=== PATIENT | female | born 1965 | race Caucasian/White ===

== ENCOUNTER → 2017-08-15 09:17 | Outpatient (CLI) | payer BC, SELFPAY ==
--- NOTE | 2017-08-15 09:25 | US_ITS ---
US abdomen limited COMPARISON: None HISTORY: Elevated liver enzymes TECHNIQUE: Ultrasound right upper quadrant FINDINGS: The pancreas is normal. The liver is normal in size and shows increased and somewhat coarsened echogenicity consistent with diffuse fatty infiltration. There are no focal lesions. The gallbladder is normal in size with a small amount of sludge seen near the neck of the gallbladder but no gallstones are seen. The common bile duct is normal caliber. The portal vein appears normal. Right kidney measures 11.4 x 4.8 x 6.0 cm and appears normal with no hydronephrosis. IMPRESSION: Diffuse fatty liver and small amount biliary sludge as noted
== END ==
PROVIDERS: Family Provider Internal Medicine; PCP Internal Medicine; Visit Provider Internal Medicine
DX: E80.7 Disorder of bilirubin metabolism, unspecified (principal)
CPT/HCPCS: 76705

== ENCOUNTER → 2018-02-27 08:03 | Outpatient (CLI) | payer BC, SELFPAY ==
--- NOTE | 2018-02-27 08:07 | XR_ITS ---
XR knee LT 3V HISTORY: ITS.REASON: STEPPED IN A HOLE, KNEE PAIN X 1 WEEK ORDERING PHYSICIAN: Mario Wei PATIENT AGE: 52 years COMPARISON: 02/20/2015 FINDINGS: No fracture or dislocation. No lytic or blastic change. Normal mineralization. There are mild osteoarthritic changes of the medial compartment and patellofemoral joint. IMPRESSION: Osteoarthritis, no acute finding, no change from 02/20/2015
== END ==
PROVIDERS: PCP Internal Medicine; Visit Provider Internal Medicine
DX: M25.562 Pain in left knee (principal)
CPT/HCPCS: 73562

== ENCOUNTER → 2018-12-18 12:58 | Outpatient (CLI) | payer BC, SELFPAY | PROVIDERS: PCP Internal Medicine; Visit Provider Internal Medicine | DX: G47.33 Obstructive sleep apnea (adult) (pediatric) (principal); R40.0 Somnolence; R06.83 Snoring; E66.9 Obesity, unspecified; R53.83 Other fatigue | CPT/HCPCS: G0399 ==

== ENCOUNTER → 2021-04-13 12:48 | Outpatient (CLI) | payer BC, SELFPAY ==
[2021-04-13 14:04] LABS: Hemoglobin A1C 6.6 % (4.0-6.0)
[2021-04-13 15:38] LABS: Alanine Aminotransferase 27 U/L (12-78); Albumin Level 4.2 g/dl (3.5-5.0); Albumin/Globulin Ratio 1.7 (1.1-1.8); Alkaline Phosphatase 98 U/L (38-126); Anion Gap 11.4 mEq/L (5-15); Aspartate Amino Transferase 30 U/L (14-36); Bilirubin,Total 0.6 mg/dl (0.2-1.3); Blood Urea Nitrogen 15 mg/dl (7-17); Calcium 9.5 mg/dl (8.4-10.2); Carbon Dioxide 32 mmol/L (22.0-30.0); Chloride 98 mmol/L (98-107); Chol/HDL Ratio 4.3 (1-3.5); Cholesterol 172 mg/dl (140-200); Estimated Glomerular Filt Rate 74 ml/min (>60); GFR (African American) 90 ML/MIN (>60); Globulin 2.5 g/dL (1.3-3.2); Glucose 118 mg/dl (74-100); HDL Cholesterol 40 mg/dl (40-60); Potassium 4.4 mmoL/L (3.5-5.1); Sodium 137 mmol/L (136-145); Total Protein,Serum 6.7 g/dl (6.3-8.2); Triglycerides 208 mg/dl (30-150); VLDL Cholesterol 42 mg/dL (0-40)
[2021-04-13 15:49] LABS: Direct LDL Cholesterol 88.39 mg/dL (100-129)
== END ==
PROVIDERS: Visit Provider Internal Medicine
DX: I10 Essential (primary) hypertension (principal); E11.9 Type 2 diabetes mellitus without complications; E78.5 Hyperlipidemia, unspecified; M10.9 Gout, unspecified; M17.0 Bilateral primary osteoarthritis of knee; Z79.84 Long term (current) use of oral hypoglycemic drugs
CPT/HCPCS: 80053; 80061; 82043; 83036; 84550

== ENCOUNTER → 2021-04-16 12:38 | Outpatient (CLI) | payer BC, SELFPAY | PROVIDERS: PCP Internal Medicine; Visit Provider Nurse Practitioner | DX: U07.1 COVID-19 (principal) | CPT/HCPCS: C9803; U0003; U0005 ==

== ENCOUNTER 2021-05-02 10:32 | Emergency (ER) | payer BC, SELFPAY ==
[2021-05-02 12:43] VITALS: BP 115/76; PULSE 73; RESP 18; TEMP 36.6; O2SAT 98; BMI 37.5
[2021-05-02 12:48] LABS: Apearance,Urine Turbid (Clear); Bilirubin,Urine Negative (Negative); Blood, Urine 3+ (Negative); Color,Urine Orange (Yellow); Glucose,Urine (UA) Negative (Negative); Ketones,Urine Negative (Negative); Protein,Urine 4+ (Negative); Specific Gravity, Urine 1.025 (1.005-1.030); UTC Leukocyte Esterase,Urine Trace (Negative); UTC Nitrate,Urine Negative (Negative); Urobilinogen,Urine 0.2 EU/dl (0.2)
--- NOTE | 2021-05-02 13:25 | HMH.EDUTC ---
[facility] Disposition Clinical Impression: UTI (urinary tract infection) Qualifiers: Urinary tract infection type: site unspecified Hematuria presence: with hematuria Qualified Code(s): N39.0 - Urinary tract infection, site not specified; R31.9 - Hematuria, unspecified Disposition: Home, Self-Care Condition on Discharge: Good Instructions: DI for Urinary Tract Infection (UTI), Urinary Tract Infection Additional Instructions: Drink plenty of fluids. Take tylenol or ibuprofen for pain or fever. Take the medications as directed. Follow up with your regular doctor. GO TO THE ER FOR ANY WORSENING SYMPTOMS The urine will be cultured to determine which bacteria is causing your infection and which antibiotic will treat it best. Usually the first antibiotic treats it well, but follow up to go over the culture results in 3 days if you are not getting better. You could also call your primary care physician to have them look it up and adjust your treatment accordingly. The pyridium will make your urine turn orange, this is an expected side effect. It will stain your clothes if it comes into contact with them. The zofran is for only if the mediations cause to have nausea. You may not need to get this from the pharmacy. The diflucan is for only if the antibiotics cause you to get a yeast infection. You may not need to get this from the pharmacy also. Prescriptions: Ondansetron [Zofran 4mg ODT] 4 mg PO Q8HP PRN #20 tab PRN Reason: Nausea Transmission Status: Pending to [facility] Sulfamethoxazole/Trimethoprim [Bactrim DS tablet] 1 each PO BID 7 Days #14 tab Transmission Status: Pending to [facility] Fluconazole [Diflucan 150mg tab] 150 mg PO ONCE #1 tab Transmission Status: Pending to [facility] Phenazopyridine HCl [Pyridium 200mg Tablet] 200 pow PO TID #6 tab Transmission Status: Pending to [facility] Referrals: Mario Wei [Primary Care Provider] - Time of Disposition: 13:41 Medical Decision Making - Medical Records Medical records reviewed: No: I reviewed the patient's medical records. - Jesus Inquiry Pt receiving controlled substance: No Vital Signs: 05/02/21 12:43 Temperature 97.9 F Temperature Source Temporal Artery Scan Pulse Rate [Left] 73 Respiratory Rate 18 Blood Pressure [Right Arm] 115/76 Blood Pressure Mean [Right Arm] 89 02 Sat by Pulse Oximetry 98 - Lab Data Lab results reviewed: Yes: I reviewed the patient's lab results. Lab Results 05/02/21 11:56: Urine Color Maynard, Urine Appearance Turbid, Urine pH 6.0, Ur Specific [place] 1.025, Urine Protein 4+, Urine Glucose (UA) Negative, Urine Ketones Negative, Urine Blood 3+, Urine Nitrate Negative, Urine Bilirubin Negative, Urine Urobilinogen 0.2, Ur Leukocyte Esterase Trace Orders (Tests/Meds): ORDERS Category Date Time Status Urine Culture Stat Micro 05/02/21 11:56 Ordered [facility] HPI - General Stated complaint: cough,congestion,burning and constant Time Seen by Provider: 05/02/21 13:25 Mode of Arrival: Ambulatory Source of Information: Patient Limitations: No Limitations Description of Symptoms (Recalled from Triage Doc. by RN): pt c/o blood in her urine, burning with urination and urinary frequency x1 week. pt states the pain is worse this am. HEENT Symptoms (Recalled from RN notes): No Resp Symptoms (Recalled from RN notes): No Skin Symptoms (Recalled from RN notes): No MS Symptoms (Recalled from RN notes): No Functional Status (Recalled from RN notes): wnl - History of Present Illness Provider Complaint: She c/o burning with urination 2 days ago. She tried to drink lots of water and get it better that way, but her symptoms worsened during last night. She is very uncomfortable now. She denies any fever or chills. She denies yeast infection symptoms. - Related Data Home Medications Medication Instructions Recorded Confirmed allopurinol 100 mg tablet PO
[2021-05-02 13:38] VITALS: BP 115/76; PULSE 73; RESP 18; TEMP 36.6
== END 2021-05-02 14:04 | disposition home or self-care (01) ==
PROVIDERS: Emergency Provider Nurse Practitioner Family; PCP Internal Medicine
DX: N30.01 Acute cystitis with hematuria (principal); I10 Essential (primary) hypertension
CPT/HCPCS: 81003; 87086; 87088; 87186; 99202; G0463

== ENCOUNTER → 2021-10-12 11:58 | Outpatient (CLI) | payer BC, SELFPAY ==
[2021-10-12 13:36] LABS: Basophils # 0.2 K/mm3 (0-0.2); Basophils % 1.5 % (0.1-2.0); Eosinophils # 0.2 K/mm3 (0.0-0.4); Eosinophils % 1.8 % (0.1-12.0); Hematocrit 41.2 % (37.0-47.0); Hemoglobin 13.6 g/dL (12.2-16.2); Lymphocytes # 4.9 K/mm3 (0.7-4.5); Lymphocytes % 39.2 % (10-50); Mean Corpuscular HGB Conc 32.9 g/dL (31.8-35.4); Mean Corpuscular Hemoglobin 28.4 pg (27.0-31.2); Mean Corpuscular Volume 86.4 fl (81-99); Mean Platelet Volume 8.8 fl (7.4-10.4); Monocytes # 0.6 K/mm3 (0.1-1.0); Monocytes % 4.5 % (1.7-9.3); Neutrophils # 6.6 K/mm3 (1.8-7.8); Platelet Count 332 K/mm3 (142-424); Red Blood Count 4.77 M/mm3 (4.20-5.40); Red Cell Distribution Width 14.9 % (11.5-17.5); White Blood Count 12.5 K/mm3 (4.8-10.8)
[2021-10-12 13:54] LABS: Alanine Aminotransferase 31 U/L (12-78); Albumin/Globulin Ratio 1.5 (1.1-1.8); Alkaline Phosphatase 107 U/L (38-126); Anion Gap 13.4 mEq/L (5-15); Aspartate Amino Transferase 29 U/L (14-36); Bilirubin,Total 0.3 mg/dl (0.2-1.3); Blood Urea Nitrogen 17 mg/dl (7-17); Calcium 9.7 mg/dl (8.4-10.2); Carbon Dioxide 30 mmol/L (22.0-30.0); Chloride 98 mmol/L (98-107); Chol/HDL Ratio 4.4 (1-3.5); Cholesterol 173 mg/dl (140-200); Estimated Glomerular Filt Rate 74 ml/min (>60); GFR (African American) 89 ML/MIN (>60); Globulin 2.7 g/dL (1.3-3.2); Glucose 157 mg/dl (74-100); HDL Cholesterol 39 mg/dl (40-60); Potassium 4.4 mmoL/L (3.5-5.1); Sodium 137 mmol/L (136-145); Total Protein,Serum 6.7 g/dl (6.3-8.2); Triglycerides 262 mg/dl (30-150); Uric Acid 8.3 mg/dl (2.5-6.2); VLDL Cholesterol 52 mg/dL (0-40)
[2021-10-12 14:05] LABS: Direct LDL Cholesterol 84.63 mg/dL (100-129)
== END ==
PROVIDERS: PCP Internal Medicine; Visit Provider Internal Medicine
DX: E11.9 Type 2 diabetes mellitus without complications (principal); E78.5 Hyperlipidemia, unspecified; I10 Essential (primary) hypertension; M10.9 Gout, unspecified; M17.0 Bilateral primary osteoarthritis of knee; Z79.84 Long term (current) use of oral hypoglycemic drugs
CPT/HCPCS: 80053; 80061; 83036; 84550; 85025

== ENCOUNTER → 2022-04-13 12:42 | Outpatient (CLI) | payer BC, SELFPAY ==
[2022-04-13 14:57] LABS: Hemoglobin A1C 6.7 % (4.0-6.0)
[2022-04-13 16:09] LABS: Alanine Aminotransferase 23 U/L (12-78); Albumin Level 4.3 g/dl (3.5-5.0); Albumin/Globulin Ratio 1.7 (1.1-1.8); Alkaline Phosphatase 124 U/L (38-126); Aspartate Amino Transferase 23 U/L (14-36); Bilirubin,Total 0.4 mg/dl (0.2-1.3); Blood Urea Nitrogen 17 mg/dl (7-17); Calcium 9.7 mg/dl (8.4-10.2); Carbon Dioxide 32 mmol/L (22.0-30.0); Chloride 98 mmol/L (98-107); Chol/HDL Ratio 4.1 (1-3.5); Cholesterol 158 mg/dl (140-200); Estimated Glomerular Filt Rate 65 ml/min (>60); GFR (African American) 78 ML/MIN (>60); Globulin 2.5 g/dL (1.3-3.2); Glucose 109 mg/dl (74-100); HDL Cholesterol 39 mg/dl (40-60); Sodium 138 mmol/L (136-145); Total Protein,Serum 6.8 g/dl (6.3-8.2); Triglycerides 154 mg/dl (30-150); Uric Acid 8.4 mg/dl (2.5-6.2); VLDL Cholesterol 31 mg/dL (0-40)
[2022-04-13 16:10] LABS: Creatinine,Urine Random 198 mg/dL (Not Estab.)
[2022-04-13 16:20] LABS: Direct LDL Cholesterol 82.22 mg/dL (100-129)
[2022-04-13 17:27] LABS: Anion Gap 11.9 mEq/L (5-15); Potassium 3.9 mmoL/L (3.5-5.1)
[2022-04-13 19:04] LABS: Microalbumin/Creatinine Ratio 5.9
== END ==
PROVIDERS: PCP Internal Medicine; Visit Provider Internal Medicine
DX: E11.9 Type 2 diabetes mellitus without complications (principal); I10 Essential (primary) hypertension; E78.5 Hyperlipidemia, unspecified; M10.9 Gout, unspecified; Z79.84 Long term (current) use of oral hypoglycemic drugs
CPT/HCPCS: 80053; 80061; 82043; 82570; 83036; 84550

== ENCOUNTER → 2022-06-15 10:39 | Outpatient (CLI) | payer BC, SELFPAY ==
--- NOTE | 2022-06-15 10:44 | XR_ITS ---
FINAL REPORT CLINICAL HISTORY: knee pain COMPARISON: None FINDINGS: Three views of the right knee reveal no evidence of fracture or dislocation. The bony alignment is normal. There are dhrn-ht-dighinvt degenerative changes. There is no evidence of joint effusion. No localized soft tissue abnormality is identified. IMPRESSION: Degenerative changes with no acute abnormality identified. Reviewed, Interpreted and Dictated by Ag Cannon III, MD Transcribed by Latasha Liu Authenticated and [facility]
--- NOTE | 2022-06-15 10:44 | XR_ITS ---
FINAL REPORT CLINICAL HISTORY: knee pain COMPARISON: 02/27/2018 FINDINGS: Three views of the left knee reveal no evidence of fracture or dislocation. The bony alignment is normal. There are mild and moderate degenerative changes. There is no evidence of joint effusion. No localized soft tissue abnormality is seen. IMPRESSION: Degenerative changes with no acute abnormality identified. Reviewed, Interpreted and Dictated by Ag Cannon III, MD Transcribed by Latasha Liu Authenticated and [facility]
== END ==
PROVIDERS: PCP Internal Medicine; Visit Provider Orthopaedic Surgery
DX: M25.561 Pain in right knee (principal); M25.562 Pain in left knee
CPT/HCPCS: 73562

== ENCOUNTER 2022-10-04 13:00 | Outpatient (RCR) | payer BC, SELFPAY ==
--- NOTE | 2022-08-25 16:01 | HMH.PTOPEV ---
PT Outpatient Evaluation Rehab PT Outpatient Evaluation Start: 08/25/22 14:01 Freq: Status: Active Protocol: Document 08/25/22 14:01 [email or web address] (Rec: 08/25/22 16:01 TAINA [id number]) E-signed By Yoanna Foley, PT Outpatient Therapy Subjective History Subjective History Pt is a 57 y/o female with main complaint of insidious onset of central low back ~6 months ago. Pt denies radicular symptoms or paresthesia. Pt reports LBP is aggravated by standing or walking for ~5'. Pt reports immediate LBP relief with sitting and resting. Pt also reports history of chronic B knee pain R>L but states they haven't been bothering her lately. Pt denies having imaging of her back. Pt had bilateral knee radiographs performed at [facility] on 06/15/22 with report of Degenerative changes with no acute abnormality identified. Pt also had an injection in her right knee on 06/15/22 which caused left hip pain. Pt reports constant aching of the left lateral hip at night since the injection. Medical History: high blood pressure, high cholesterol, pre-diabetic Gait: genu varus deformity noted bilaterally Chief Complaint Pain Symptom Type Ache,Dull Symptoms Relieved By Rest/Positioning Symptoms Aggravated By Standing,Walking Prior Functional Limitations None Current Functional Limitations Sleeping,Standing,Walking, Stairs Symptom Description Intermittent Level of pain today (0-10) 0 Pain scale - at its best (0-10) 0 Pain scale - at its worst (0-10) 10 Lumbopelvic Eval Posture Lumbar Spine Posture Standing Position Flattened Assistive device Assistive Devices None / NA Gait Observation General Gait Pattern Observation Antalgic Gait,Wide Based Gait Palapation tenderness left buttock tenderness Yes: greater trochanter and piriformis Lumbar/Sacral Palpation Findings Tenderness
--- NOTE | 2022-09-22 15:07 | HMH.RHREAS ---
Rehab Reassessment Rehab OP Re-assessment Start: 09/22/22 14:10 Freq: Status: Active Protocol: Document 09/22/22 14:10 TAINA (Rec: 09/22/22 15:07 TAINA [id number]) E-signed By Yoanna Foley PT Rehab Re-assessment Subjective Subjective Pt reports she feels close to 100% improved in regards of how she expected to improve since starting PT. Pt reports she is able to walk further without having to rest due to pain (~3 minutes). Pt reports low back pain at worst as 5/ 10 and L>R knee pain 8/10 with walking. Pt reports she returns to her MD on 09/18/22. Pt reports she plans on getting her knee replaced in February. Objective Objective Notes Observation: varus deformity noted bilaterally with antalgic gait Lumbar AROM: flex 100, ext 12, 25 LF Knee AROM: -2 to 128 Knee MMT: 5/5 Hip MMT: 4+/5 STG: /5 LTG: / Assessment Progress Assessment Progressing as Expected Assessment Notes Pt has attended 8 PT visits. Pt's POC was originally planned for aquatic therapy; however, only 1 aquatic session was able to be performed due to maintence issues with the pool. Land exercises consisted of aerobic exercise, LE/core strengthening, and LE stretching. Pt demonstrated improved lumbar AROM and LE strength since initial evaluation. Patient goals met ST/5 LT/7 Goals Not Met walking/standing tolerance, pain at worst Revised Goals n/a Plan Plan Continue initial POC Frequency of Therapy 1-2x/week Duration of therapy 3-4 more weeks Time and Billing Re-Eval Time 10 Re-Eval Billing Units 1
== END 2022-10-04 13:05 | disposition home or self-care (01) ==
LOC: PT 13:00
PROVIDERS: PCP Internal Medicine; Visit Provider Orthopaedic Surgery
DX: M54.50 Low back pain, unspecified (principal); M17.0 Bilateral primary osteoarthritis of knee
CPT/HCPCS: 97010; 97014; 97033; 97110; 97113; 97163; 97164; 97530; G0283

== ENCOUNTER → 2022-10-21 13:14 | Outpatient (CLI) | payer BC, SELFPAY ==
[2022-10-21 16:20] LABS: Basophils # 0.1 K/mm3 (0-0.2); Basophils % 0.6 % (0.1-2.0); Eosinophils # 0.2 K/mm3 (0.0-0.4); Eosinophils % 1.3 % (0.1-12.0); Hematocrit 41.6 % (37.0-47.0); Hemoglobin 13.4 g/dL (12.2-16.2); Lymphocytes # 6.2 K/mm3 (0.7-4.5); Lymphocytes % 40.6 % (10-50); Mean Corpuscular HGB Conc 32.2 g/dL (31.8-35.4); Mean Corpuscular Hemoglobin 27.7 pg (27.0-31.2); Mean Corpuscular Volume 85.9 fl (81-99); Mean Platelet Volume 8.8 fl (7.4-10.4); Monocytes # 0.6 K/mm3 (0.1-1.0); Monocytes % 4.2 % (1.7-9.3); Neutrophils # 8.2 K/mm3 (1.8-7.8); Neutrophils % 53.3 % (37.0-80.0); Platelet Count 345 K/mm3 (142-424); Red Blood Count 4.84 M/mm3 (4.20-5.40); Red Cell Distribution Width 14.4 % (11.5-17.5); White Blood Count 15.3 K/mm3 (4.8-10.8)
[2022-10-21 16:26] LABS: MANUAL DIFFERENTIAL MANUAL DIFFERENTIAL (MANUAL DIFF)
[2022-10-21 16:48] LABS: Alanine Aminotransferase 26 U/L (12-78); Albumin/Globulin Ratio 1.5 (1.1-1.8); Alkaline Phosphatase 106 U/L (38-126); Anion Gap 17.7 mEq/L (5-15); Aspartate Amino Transferase 24 U/L (14-36); Bilirubin,Total 0.5 mg/dl (0.2-1.3); Blood Urea Nitrogen 15 mg/dl (7-17); Calcium 9.3 mg/dl (8.4-10.2); Carbon Dioxide 30 mmol/L (22.0-30.0); Chloride 99 mmol/L (98-107); Chol/HDL Ratio 3.6 (1-3.5); Cholesterol 149 mg/dl (140-200); Estimated Glomerular Filt Rate 86 ml/min (>60); GFR (African American) 104 ML/MIN (>60); Globulin 2.7 g/dL (1.3-3.2); Glucose 116 mg/dl (74-100); HDL Cholesterol 41 mg/dl (40-60); Potassium 4.7 mmoL/L (3.5-5.1); Sodium 142 mmol/L (136-145); Total Protein,Serum 6.7 g/dl (6.3-8.2); Triglycerides 172 mg/dl (30-150); Uric Acid 8.2 mg/dl (2.5-6.2); VLDL Cholesterol 34 mg/dL (0-40)
[2022-10-21 16:52] LABS: Hemoglobin A1C 6.5 % (4.0-6.0)
[2022-10-21 16:59] LABS: Direct LDL Cholesterol 76.61 mg/dL (100-129)
[2022-10-21 17:05] LABS: Hypochromasia 1+; Lymphocytes % 17 % (10-50); Monocytes % 5 % (2-9); Neutrophils % 78 % (42-76); Platelet Estimate Normal; Total Cells Counted 100
== END ==
PROVIDERS: PCP Internal Medicine; Visit Provider Internal Medicine
DX: E11.9 Type 2 diabetes mellitus without complications (principal); I10 Essential (primary) hypertension; E78.5 Hyperlipidemia, unspecified; M10.9 Gout, unspecified; M17.0 Bilateral primary osteoarthritis of knee; Z79.84 Long term (current) use of oral hypoglycemic drugs
CPT/HCPCS: 80053; 80061; 83036; 84550; 85007; 85025

== ENCOUNTER → 2023-04-24 12:56 | Outpatient (CLI) | payer BC, SELFPAY ==
[2023-04-24 14:00] LABS: Chloride 101 mmol/L (98-107); Sodium 139 mmol/L (136-145)
[2023-04-24 14:02] LABS: Blood Urea Nitrogen 15 mg/dl (7-17); Estimated Glomerular Filt Rate 74 ml/min (>60); GFR (African American) 89 ML/MIN (>60)
[2023-04-24 14:03] LABS: Alanine Aminotransferase 27 U/L (12-78); Albumin Level 4.3 g/dl (3.5-5.0); Albumin/Globulin Ratio 1.6 (1.1-1.8); Alkaline Phosphatase 99 U/L (38-126); Aspartate Amino Transferase 25 U/L (14-36); Bilirubin,Total 0.6 mg/dl (0.2-1.3); Calcium 9.2 mg/dl (8.4-10.2); Carbon Dioxide 30 mmol/L (22.0-30.0); Chol/HDL Ratio 4.4 (1-3.5); Cholesterol 163 mg/dl (140-200); Globulin 2.7 g/dL (1.3-3.2); Glucose 119 mg/dl (74-100); HDL Cholesterol 37 mg/dl (40-60); Triglycerides 199 mg/dl (30-150); VLDL Cholesterol 40 mg/dL (0-40)
[2023-04-24 14:14] LABS: Direct LDL Cholesterol 87.88 mg/dL (100-129)
[2023-04-24 15:39] LABS: Uric Acid 8.6 mg/dl (2.5-6.2)
[2023-04-24 16:10] LABS: Creatinine,Urine Random 157 mg/dL (Not Estab.)
[2023-04-24 16:15] LABS: Microalbumin < 6.000 mg/L (0-16.7)
[2023-04-24 16:20] LABS: Hemoglobin A1C 6.7 % (4.0-6.0)
== END ==
PROVIDERS: PCP Internal Medicine; Visit Provider Internal Medicine
DX: E11.9 Type 2 diabetes mellitus without complications (principal); I10 Essential (primary) hypertension; E78.5 Hyperlipidemia, unspecified; M17.0 Bilateral primary osteoarthritis of knee; M10.9 Gout, unspecified; Z79.84 Long term (current) use of oral hypoglycemic drugs
CPT/HCPCS: 80053; 80061; 82043; 82570; 83036; 84550

== ENCOUNTER 2023-06-02 10:20 | Outpatient (CLI) | payer BC, SELFPAY ==
--- NOTE | 2023-06-02 10:30 | XR_ITS ---
FINAL REPORT CLINICAL HISTORY: right knee pain COMPARISON: 06/15/2022 FINDINGS: Three views of the right knee reveal no evidence of fracture or dislocation. The bony alignment is normal. There is moderate and severe degenerative change. There is severe medial compartment narrowing. There is no evidence of joint effusion. No localized soft tissue abnormality is identified. IMPRESSION: Moderate and severe degenerative change without acute abnormality identified. Reviewed, Interpreted and Dictated by Ag Cannon III, MD Transcribed by Latasha Liu Authenticated and [facility]
== END 2023-06-02 23:59 ==
LOC: RAD 10:21
PROVIDERS: PCP Internal Medicine; Visit Provider Orthopaedic Surgery
DX: M25.561 Pain in right knee (principal)
CPT/HCPCS: 73562

== ENCOUNTER 2023-07-07 11:52 | Outpatient (CLI) | payer BC, SELFPAY ==
--- NOTE | 2023-07-07 12:03 | XR_ITS ---
FINAL REPORT CLINICAL HISTORY: Pre Op, 2 weeks right knee sx denies any heart/lung condition FINDINGS: 2 views of the chest were obtained . The heart is normal in size. The mediastinum is within normal limits. The lungs are clear. There is no pneumothorax. Osseous structures are unremarkable. IMPRESSION: No acute cardiopulmonary process. Reviewed, Interpreted and Dictated by Navid Preciado MD Transcribed by Tamar Crook Authenticated and [facility]
--- NOTE | 2023-07-07 12:15 | ECG_ITS ---
APPROVED REPORT Exam: Resting ECG HR:77 bpm ECG Measurements Heart Rate 77 AXES VT 162 P 68 QRSd 93 QRS 75 QT 382 T 17 QTc 414 Conclusion SINUS RHYTHM LOW QRS VOLTAGE IN PRECORDIAL LEADS [QRS DEFLECTION < 1.0 mV IN CHEST LEADS] BORDERLINE ECG UNCONFIRMED REPORT Electronically signed by : Chino Acosta MD 07/08/2023 12:37:13
[2023-07-07 12:35] LABS: Basophils # 0.1 K/mm3 (0-0.2); Basophils % 0.6 % (0.1-2.0); Eosinophils # 0.4 K/mm3 (0.0-0.4); Eosinophils % 2.5 % (0.1-12.0); Hematocrit 42.6 % (37.0-47.0); Hemoglobin 13.9 g/dL (12.2-16.2); Lymphocytes # 7.8 K/mm3 (0.7-4.5); Lymphocytes % 45.2 % (10-50); Mean Corpuscular HGB Conc 32.5 g/dL (31.8-35.4); Mean Corpuscular Hemoglobin 28.8 pg (27.0-31.2); Mean Corpuscular Volume 88.6 fl (81-99); Mean Platelet Volume 7.7 fl (7.4-10.4); Monocytes # 0.6 K/mm3 (0.1-1.0); Monocytes % 3.6 % (1.7-9.3); Neutrophils # 8.4 K/mm3 (1.8-7.8); Neutrophils % 48.2 % (37.0-80.0); Platelet Count 318 K/mm3 (142-424); Red Blood Count 4.81 M/mm3 (4.20-5.40); Red Cell Distribution Width 14.7 % (11.5-17.5); White Blood Count 17.3 K/mm3 (4.8-10.8)
[2023-07-07 12:37] LABS: MANUAL DIFFERENTIAL MANUAL DIFFERENTIAL (MANUAL DIFF)
[2023-07-07 12:50] LABS: Lymphocytes % 46 % (10-50); Monocytes % 3 % (2-9); Neutrophils % 51 % (42-76); Platelet Estimate Normal; RBC Morphology Normal; Total Cells Counted 100
[2023-07-07 12:57] LABS: Hemoglobin A1C 6.4 % (4.0-6.0)
[2023-07-07 13:02] LABS: Chloride 101 mmol/L (98-107)
[2023-07-07 13:03] LABS: Potassium 4.4 mmoL/L (3.5-5.1); Sodium 137 mmol/L (136-145)
[2023-07-07 13:05] LABS: Alanine Aminotransferase 27 U/L (12-78); Anion Gap 9.4 mEq/L (5-15); Aspartate Amino Transferase 25 U/L (14-36); Blood Urea Nitrogen 14 mg/dl (7-17); Carbon Dioxide 31 mmol/L (22.0-30.0); Estimated Glomerular Filt Rate 64 ml/min (>60); GFR (African American) 78 ML/MIN (>60)
[2023-07-07 13:06] LABS: Albumin Level 4.3 g/dl (3.5-5.0); Albumin/Globulin Ratio 1.7 (1.1-1.8); Alkaline Phosphatase 101 U/L (38-126); Bilirubin,Total 0.6 mg/dl (0.2-1.3); Globulin 2.6 g/dL (1.3-3.2); Glucose 93 mg/dl (74-100); Total Protein,Serum 6.9 g/dl (6.3-8.2)
== END 2023-07-07 23:59 ==
LOC: LAB 11:56
PROVIDERS: PCP Internal Medicine; Visit Provider Orthopaedic Surgery
DX: Z01.818 Encounter for other preprocedural examination (principal); M17.0 Bilateral primary osteoarthritis of knee
CPT/HCPCS: 36415; 71046; 80053; 83036; 85007; 85025; 93005

== ENCOUNTER 2023-07-11 12:47 | Outpatient (CLI) | payer BC, SELFPAY ==
[2023-07-11 13:13] LABS: Basophils # 0.1 K/mm3 (0-0.2); Basophils % 0.6 % (0.1-2.0); Eosinophils # 0.3 K/mm3 (0.0-0.4); Eosinophils % 2.1 % (0.1-12.0); Hematocrit 41.1 % (37.0-47.0); Hemoglobin 13.3 g/dL (12.2-16.2); Mean Corpuscular HGB Conc 32.5 g/dL (31.8-35.4); Mean Corpuscular Hemoglobin 28.8 pg (27.0-31.2); Mean Corpuscular Volume 88.5 fl (81-99); Mean Platelet Volume 8.1 fl (7.4-10.4); Monocytes # 0.6 K/mm3 (0.1-1.0); Neutrophils # 7.5 K/mm3 (1.8-7.8); Neutrophils % 48.4 % (37.0-80.0); Platelet Count 329 K/mm3 (142-424); Red Blood Count 4.64 M/mm3 (4.20-5.40); Red Cell Distribution Width 14.7 % (11.5-17.5); White Blood Count 15.5 K/mm3 (4.8-10.8)
[2023-07-11 13:20] LABS: MANUAL DIFFERENTIAL MANUAL DIFFERENTIAL (MANUAL DIFF)
[2023-07-11 14:04] LABS: Eosinophils % 1 % (0-3); Lymphocytes % 40 % (10-50); Monocytes % 6 % (2-9); Neutrophils % 53 % (42-76); Total Cells Counted 100
[2023-07-11 14:05] LABS: Platelet Estimate Normal; RBC Morphology Normal
[2023-07-11 14:07] LABS: Erythrocyte Sedimentation Rate 14 mm/hr (0-30)
== END 2023-07-11 23:59 ==
LOC: LAB.DROPOF 12:47
PROVIDERS: PCP Internal Medicine; Visit Provider Internal Medicine
DX: Z01.818 Encounter for other preprocedural examination (principal); E11.9 Type 2 diabetes mellitus without complications; D72.829 Elevated white blood cell count, unspecified; I10 Essential (primary) hypertension; E78.5 Hyperlipidemia, unspecified; E04.9 Nontoxic goiter, unspecified; M10.9 Gout, unspecified; M17.0 Bilateral primary osteoarthritis of knee; Z79.84 Long term (current) use of oral hypoglycemic drugs
CPT/HCPCS: 85007; 85025; 85651

== ENCOUNTER 2023-07-25 09:42 | Observation (INO) | payer BC, SELFPAY ==
[2023-07-21 12:18] VITALS: BMI 35.6
[2023-07-25] VITALS (18 sets, daily range): BP systolic 93–128; BP diastolic 50–74; PULSE 59–100; RESP 16–20; TEMP 36.1–36.7; O2SAT 93–100; BMI 36.5
[2023-07-25] MEDS: LACTATED RINGERS 1000ML 1,000 ML 25 ML IV (09:15)
--- NOTE | 2023-07-25 09:41 | SUR.PREOP ---
CLARIFIED WITH DR MEADE PT IS TO RECEIVE ANCEF DESPITE PCN ALLERGY.
--- NOTE | 2023-07-25 09:48 | EXP.ANES.CKL ---
[facility] Disclaimer: The information contained in this section may have been updated after the patient was seen, as this information can be updated by other users. Medical History (Updated 07/25/23 @ 09:06 by Latasha Paulson RN) Pre-diabetes Hypertension Surgical History (Updated 07/21/23 @ 12:19 by Latasha Paulson RN) History of section Family History Other No significant family history Social History (Updated 07/21/23 @ 12:19 by Latasha Paulson RN) Smoking Status: Never smoker alcohol intake: never substance use type: denies use current occupational status: unemployed Travel in the last 8 weeks: None household members: family housing: house [facility] Anesthesia Checklist Patient Identification Patient Identification: Arm Band Structural Data Admitted From: Home Planned Operative Procedure/s: Right Total Knee Arthroplasty Consent for Planned Operative Procedure(s) Verified: Yes Verified Documents: Surgical Consent and History and Physical NPO Status Verified Time NPO: 00:00 Additional verifications Anesthesia Reactions: No Hx Blood Transfusions: No Airway Assessment Mallampati Score:: Class II C-Spine Mobility Assessed: Yes TMJ Mobility Assessed: Yes Dentition: Good Dentition Neurological Assessment Level of Consciousness: Awake and Alert Anesthesia Plan Anesthesia Risk discussed: Yes Anesthesia Plan: Verified ASA Class: III Anesthesia Type: MAC w/Spinal (With Right Adductor Canal Nerve Block)
[2023-07-25] MEDS: MORPHINE PF 10 MG/10ML AMP (10:53)
[2023-07-25] MEDS: ROPIVACAINE 0.5% 30ML VIAL 150 MG (10:53)
[2023-07-25] MEDS: CEFAZOLIN SODIUM 2 GM in 0.9 % SODIUM CHLORIDE 100 ML IV ×3 (10:54→23:09)
[2023-07-25] MEDS: TRANEXAMIC ACID 1,000 MG in 0.9 % SODIUM CHLORIDE 250 ML 500 MG IV (10:54)
[2023-07-25] MEDS: SODIUM CHLORIDE IRRIG SOLUTION 3,000 ML 3000 ML IR (10:54)
--- NOTE | 2023-07-25 12:00 | EXP.OP.NOTE ---
Date of procedure: 07/25/23 Pre-op Diagnosis:: Right knee osteoarthritis Post-op Diagnosis:: Right knee osteoarthritis Procedure performed:: Right total knee replacement Surgeon:: Kike Rebolledo MD Garageman(s):: None ICE PLATFORM SUPERVISOR:: Other Anesthesia: regional, local and spinal Estimated blood loss (mL): 5 Clinical Note:: Kendal is a very pleasant 57-year-old female with activity limiting bilateral knee pain secondary to osteoarthritis that is affecting her quality of life. Right knee is worse. Bilateral knee x-rays at [place] 06/15/2022 revealed moderate tricompartmental degenerative changes in both knees slightly worse on the right. There is almost complete loss of medial joint space with marginal osteophyte formation in varus knees. A right knee cortisone injection in June 2022 did not help much and she feels like it aggravated her low back and left hip. She does not want any more injections. She has done physical therapy at [facility] focusing on core strengthening and a low back program. Also has completed some aquatic therapy. We have provided her with a low-impact home exercise program. At this point she is a reasonable candidate for right total knee replacement. I discussed all the risks, benefits and alternatives to right knee replacement and she agrees to proceed. Surgical consent form was signed. Operative findings:: Right knee severe tricompartmental degenerative changes with varus deformity. Operative note:: The patient was seen in the preoperative holding area. The right knee was marked to confirm the correct operative site. She was seen by anesthesia. She received Ancef 2 g IV prophylactic antibiotics within 1 hour of incision time. She also received a gram of IV TXA just prior to the incision and as were closing to help minimize bleeding. She was brought back to the OR. Spinal anesthesia performed without difficulty and IV sedation given throughout the case. A nonsterile tourniquet was applied to the right thigh. The right lower extremity was prepped and draped in the usual sterile fashion. Timeout performed to confirm right total knee arthroplasty for patient Kendal Lee. The right lower extremity was examined with an Esmarch and tourniquet was inflated to 300 mmHg. With the knee flexed I made a midline incision with a 10 blade scalpel. Full-thickness medial and lateral flaps were elevated. Adequate hemostasis maintained with Bovie electrocautery. A fresh 10 blade scalpel was used to make a medial parapatellar arthrotomy. The patella was everted. Anterior femoral fat pads and infrapatellar fat pads were excised with the Bovie. A medial release was performed with the Bovie and marginal osteophytes were removed. Medial and lateral Z retractors were placed. The distal femur was then drilled and the intramedullary distal femoral cutting guide was pinned in place set at a 5 degree valgus cut. This cut was then made with oscillating saw removing approximately centimeter of bone from the distal femur. The distal femur was then sized to a size 6 set at 3 degrees of external rotation. The 4-in-1 cutting was pinned in place and the anterior and posterior cuts were made as well as as the chamfer cuts with the oscillating saw. We then turned our attention to the tibia. A PCL retractor and medial and lateral Hohmann retractors were placed. Using the extramedullary tibial cutting guide with a 3 degree posterior slope we excised about 5 mm of bone from the low medial side and about a centimeter from the high lateral side using the oscillating saw. We then excised the medial and lateral menisci and posterior osteophytes. We checked balancing with a 9 mm block and there was full extension with excellent alignment. We then finished preparation of the tibia with a size 4 tibial tray centered off the medial third of the tibial tubercle. Fins were impacted and tray was pinned in place for trialing. We then placed the size 6 femur and made the box cut with the reamer and punch. Decided to use a 6 narrow for the final implant. We placed a 9 mm trial poly. With these trial components in place there was full extension and flexion with excellent alignment and stable throughout. We then made a patellar cut. Patella sized to 24 mm in thickness so we made a 9 mm patellar cut. Sized to a 32 mm button. Drill holes were made and with the trial button in place there was excellent tracking. Trial components removed and final components opened on the back table. The knee was copiously irrigated with Pulsavac lavage and thoroughly dried. A bone plug was placed in the distal femoral drill hole. The posterior capsule was injected with 20 cc of half percent Naropin and 5 mg of morphine for local anesthetic. Cement was then mixed on the back table. We applied cement to the cut tibial and femoral surfaces and impacted the size 4 tibia and [address] Excess cement was removed. We then placed a 9 mm poly and it was seen to be fully engaged in the tibial tray. The knee was placed in extension while the cement cured. We also applied cement to the cut patellar surface and held the 32 mm patellar button in place with the patellar clamp. Once the cement was fully cured we irrigated the knee with a dilute Betadine solution and Pulsavac lavage. We then proceeded with closure. The deep fascia was closed with a #1 strata fix barbed suture, the dermis was closed with interrupted 2-0 Vicryl sutures and the skin was closed with a 3-0 stratafix subcuticular barbed suture. We then applied a sterile dressing with Prineo mesh dressing with Dermabond glue, 4 x 4's, ABD, soft roll and Frankie bandage. Tourniquet was deflated at 76 minutes. All sponge and needle counts were correct. Postoperative plan: The patient will be admitted to the hospitalist service for medical management. Discussed with Dr. Fong. Mobilize as tolerated with PT and OT. Remove soft dressing postop day #1, okay to shower with mesh dressing in place. optical engineering manager for home equipment needs and schedule outpatient physical therapy at [facility] to start later this week. Plan discharge home tomorrow if doing well. Follow-up in the office in 3 weeks on 08/15. Tourniquet time (min): 76 Condition: stable Disposition: PACU Specimens:: Implants used: [employer] posterior stabilized total knee arthroplasty with a size 6 narrow femur, 4 tibia, 9 polyethylene and 32 patella Complications:: None
--- NOTE | 2023-07-25 12:10 | XR_ITS ---
FINAL REPORT CLINICAL HISTORY: Status post right knee replacement..pain COMPARISON: 06/02/2023 FINDINGS: Two views of the right knee were obtained. Postoperative changes from right knee arthroplasty. Hardware appears intact. Soft tissue air is noted. There is no evidence of complication. IMPRESSION: Postoperative changes from right knee arthroplasty without evidence of complication. Reviewed, Interpreted and Dictated by Ag Cannon III, MD Transcribed by Latasha Liu Authenticated and . [facility]
--- NOTE | 2023-07-25 12:20 | P.PNANES_ITS ---
[facility] Anesthesia Record Part I Anesthesia Record I Intake, IV Amount: 1,100 Hydration: Adequate Estimated blood loss (mL): 25 Urine output (mL): 0 Blood Products used (#): none Blood Pressure: 101/50 SaO2: 93 Pulse Rate: 100 Airway Patency: Patent Respiratory Rate: 20 Temperature: 97.1 F Patient is:: Awake (Talking) and Stable Stable to PACU at:: 12:15
--- NOTE | 2023-07-25 14:10 | HMH.PTEV ---
Physical Therapy Evaluation Rehab PT IP Evaluation Start: 07/25/23 12:10 Freq: ONCE Status: Active Protocol: Document 07/25/23 13:53 AYAN (Rec: 07/25/23 14:00 AYAN [id number]) Subjective/History History History Pt presents s/p L TKA surgery. Subjective Subjective Pt reports she lives with her in a single-story home with 1 TRACY. Pt IND with functional mobility prior to surgery without AD use. New diagnosis of cancer in past 12 No months? Rehab PT IP Eval Objective Appearance Patient Behavior Appropriate,Cooperative Patient Orientation Person,Place Difficulty following instructions none Speech Pattern Clear Ambulation Patient Able to Ambulate No Balance Ability to Arise Able, uses arms to help Sitting Balance Steady, safe Standing Balance Unsteady Transfers Bed Transfer Ability Minimal x 1 (25% assist) Sit to Stand Bed Transfer Ability Moderate x 2 (50% assist) Rehab PT IP prob,goals,plan Problems Date of Evaluation: 07/25/23 PT IP Problems Bed Mobility,Transfers,Gait, Balance,Self care,Safety Rehab Potential Rehab Potential Good Equipment Needs Assistive Devices Rolling / Wheeled Walker Plan PT Intervention Plan Bed Mobility,Transfers,Gait, Balance,Safety,Therapeutic Exercise Other Intervention Plan 1-2 times PT Plan Frequency Daily Duration LOS Discharge Goals Bed Transfer Ability Supervision/Stand by Sit to Stand Chair Transfer Ability Minimal x 1 (25% assist) Ambulation Assistive Device Rolling Walker Ambulation Distance (feet) 10 Discharge Plan PT Discharge Plan Pt safe to d/c home when deemed medically necessary d/t PLOF, home set-up, and family support. Pt's able to assist with mobility and ADLs as needed. Pt unable to achieve full stand this date d /t residual block from surgery requiring Mod A to return sitting EOB safely. Pt would benefit from skilled PT while at [facility] to prevent further functional decline and maximize safety with mobility. PT recommending OP PT services to address deficits. Eval Complexity Eval Charge Codes 86923 - Moderate Complexity PHYSICIAN CERTIFICATION: I certify the specified therapy services for Kendalsantos Lee are required, authorized, and reviewed every 30 days.
--- NOTE | 2023-07-25 14:13 | SW/DCPLANNER ---
Addendum entered by Corazon Cope 07/25/23 15:42: Outpatient PT appointment is scheduled for Monday07/28/23 at 1:00PM: I have notified patient's nurse. Original Note: I spoke w/ this patient regarding plans once medically stable for discharge. PT/OT evaluated patient and stated that patient could return to outpatient PT services. Patient is agreeable to return to [facility] outpatient PT at time of discharge. Patient also stated that she will need a rolling walker at time of discharge and is agreeable to use [facility].
--- NOTE | 2023-07-25 15:56 | EXP.HP ---
History of Present Illness *Admission Date: 07/25/23 *Reason for visit:: R knee surgery *History of present illness: Patient is a 57-year-old female who presented to the hospital due to surgery after right knee replacement. At time of my evaluation patient denies chest pain shortness of breath nausea vomiting diarrhea constipation dysuria fevers and chills. Patient has past medical history of hypertension hyperlipidemia, prediabetes. [facility] Disclaimer: The information contained in this section may have been updated after the patient was seen, as this information can be updated by other users. Medical History (Updated 07/25/23 @ 15:57 by Rudolph Fong MD) Pre-diabetes Hypertension Surgical History History of section Family History (Updated 07/25/23 @ 15:57 by Rudolph Fogn MD) Other Hypertension No significant family history Social History Smoking Status: Never smoker alcohol intake: never substance use type: denies use current occupational status: unemployed Travel in the last 8 weeks: None household members: family housing: house Review of Systems Review of Systems Review of systems (narrative): as per [facility] Meds Home Medications and Allergies Home Medications Medication Instructions Recorded Confirmed Type aspirin 81 mg tablet,delayed 81 mg PO DAILY 11/12/18 07/25/23 History release (Adult Low Dose Aspirin) atorvastatin 20 mg tablet 20 mg PO HS #90 tabs 11/12/18 07/25/23 History metformin 500 mg tablet 500 mg PO BID 08/17/22 07/25/23 History lisinopril 20 2 tab PO DAILY 06/02/23 07/25/23 History mg-hydrochlorothiazide 12.5 mg tablet oxycodone 5 mg tablet 5 mg PO Q4H PRN pain #30 tabs 07/25/23 Rx New Prescriptions to Start Prescriptions: Allergies Allergy/AdvReac Type Severity Reaction Status Date / Time Penicillins Allergy Unknown Unknown Verified 07/25/23 12:49 allergy reaction Exam Data for Last 24 hours Vital signs and Labs for Last 24 Hours: Temp Pulse Resp BP Pulse Ox O2 Del Method 98.0 F 82 18 101/55 L 95 Room Air 07/25/23 12:43 07/25/23 12:43 07/25/23 12:43 07/25/23 12:43 07/25/23 12:43 07/25/23 13:00 I & O for Last 24 hours: Intake & Output 07/22/23 07/23/23 07/24/23 07/25/23 22:59 23:59 23:59 23:59 Intake Total 1100 / 1100 Output Total 0 / 0 Balance 1100 / 1100 Weight 108.862 kg Constitutional Constitutional: no acute distress *Routine HEENT Exam Head: Present normocephalic Eye: Present EOMI and PERRL ENT: Present mucous membranes moist *Routine Neck Exam Neck: Present supple; Absent lymphadenopathy *Routine Respiratory Exam Respiratory: Present CTA bilaterally *Routine Cardiovascular Exam Cardiovascular: Present RRR *Routine Abdominal Exam Abdominal: Present soft and normoactive bowel sounds; Absent tenderness *Routine Rectal Exam Rectal:: deferred *Routine Genitalia Exam Genitalia:: deferred *Routine Extremities Exam Extremities: Absent cyanosis, clubbing or edema Comments: R knee covered in dressing *Routine Skin Exam Skin: Present warm; Absent rash *Routine Neurological Exam Neurological: Present alert and oriented X3 Assessment and Plan *Assessment and plan (1) Leukocytosis: Status: Acute Category: Medical Code(s): D72.829 - Elevated white blood cell count, unspecified (2) Primary osteoarthritis of knees, bilateral: Status: Acute Category: Medical Code(s): M17.0 - Bilateral primary osteoarthritis of knee (3) Chronic pain of both knees: Status: Acute Category: Medical Code(s): M25.561 - Pain in right knee; M25.562 - Pain in left knee; G89.29 - Other chronic pain (4) Pre-diabetes: Status: Acute Category: Medical Code(s): R73.03 - Prediabetes (5) Hypertension: Status: Acute Category: Medical Code(s): I10 - Essential (primary) hypertension Plan Patient is a 57-year-old female who presented to the hospital due to surgery after right knee replacement. At time of my evaluation patient denies chest pain shortness of breath nausea vomiting diarrhea constipation dysuria fevers and chills. Patient has past medical history of hypertension hyperlipidemia, prediabetes. Assessment Right knee replacement Leukocytosis likely chronic, patient follows up with hematology as outpatient Hypertension Hyperlipidemia Prediabetes Plan Aspirin 325 for DVT prophylaxis Continue atorvastatin, lisinopril, metformin Consult PT/OT Monitor and replace electrolytes Check hemoglobin in a.m. DVT prophylaxis-heparin Diabetic diet Likely discharge
--- NOTE | 2023-07-25 16:25 | HMH.OTEV ---
OT Inpatient Evaluation Rehab OT IP Evaluation Start: 07/25/23 12:10 Freq: ONCE Status: Active Protocol: Document 07/25/23 16:08 BAILEYLEIGH ANN (Rec: 07/25/23 16:25 LAKESHIA [id number]) Rehab OT IP Assessment Subjective History Patient is a 57-year-old female who presented to the hospital due to surgery after right knee replacement. At time of my evaluation patient denies chest pain shortness of breath nausea vomiting diarrhea constipation dysuria fevers and chills. Patient has past medical history of hypertension hyperlipidemia, prediabetes. I can move around. Patient lives with in 1 story home with 1-2 TRACY. Independent with ADLs and fx'l mobility prior to surgery. Continues to work and drive independently. Subjective I can move. Instructed Patient on proper hand and foot placement to complete bed mobility from supine->sit @ EOB requiring SBA. Instructed Patient on sit ->stand with usage of RW. Patient stood with Mod A x2, however R knee unable to hold patient up at this time and was slowly transitioned back to EOB. Educated Patient to attempt to stand/ambulate the next morning. Objective Patient Orientation Person Right Upper Extremity Gross ROM WFL Left Upper Extremity Gross ROM WFL Bed Mobility bed mobility - supine/sit Assist Level Supervision/Stand by Transfer Training Sit/Stand Transfer Assist Level Moderate x 2 (50% assist) Chair Transfer Ability Moderate x 2 (50% assist) Rehab OT IP prob,goals,plan Problems Date of Evaluation: 07/25/23 OT IP Problems Bed Mobility,Transfers,Balance ,Self care,Safety Rehab Potential Rehab Potential Good Equipment Needs Assistive Devices Rolling / Wheeled Walker Plan OT intervention Plan Bed Mobility,Transfers,Balance ,Self care,Safety,Therapeutic Exercise OT Plan Frequency Daily Duration LOS Discharge Goals Bed Mobility Ability Assistance x1 Sit to Stand Chair Transfer Ability Independent Chair Transfer Ability Moderate x 1 (50% assist) Discharge Plan OT Discharge Plan Patient to continue to be seen here at [facility] for IP OT skilled services. REcommend OP services after medical d/c from hospital. Eval Complexity Eval Charge Codes 61116 - Low Complexity PHYSICIAN CERTIFICATION: I certify the specified therapy services for Kendal Lee are required, authorized, and reviewed every 30 days.
[2023-07-25] MEDS: OXYCODONE 5MG IMMEDIATE RELEASE TABLET 5 MG PO ×3 (17:23→23:52)
[2023-07-25] MEDS: HEPARIN SODIUM 5,000 UNIT/ML VIAL 5000 UNIT SQ (17:24)
[2023-07-25] MEDS: METFORMIN 500MG TABLET 500 MG PO (18:07)
--- NOTE | 2023-07-25 18:50 | PC.NURSE ---
patient moved over from unit- a/ox4, no distress noted while RN IN ROOM. REPORT FROM Briseyda Grimes RN [id number]. Call light within reach, scuds in place and k pad in place. at bedside.
[2023-07-25] MEDS: IBUPROFEN 600 MG TABLET PO (20:21)
[2023-07-25] MEDS: ATORVASTATIN 20MG TABLET 20 MG PO (20:57)
--- NOTE | 2023-07-25 23:09 | PC.NURSE ---
PT LAYING IN A LEFT TILT,PT TRYING TO GET COMFORTABLE.REPORTS PAIN IS ABOUT THE SAME.A 6-7.ASKED IF SHE WANTED TO TRY 2 OXYCODONES INSTEAD OF ONE AND SHE SAID YES,TOLD HER IT WAS A LITTLE TO SOON FOR 2 BUT IF SHE WANTED TO WAIT UNTIL HER ANCEF INFUSED WHICH WAS ABOUT 30 MINS,I COULD GIVE 2 AND SHE WAS ALRIGHT WITH THAT
--- NOTE | 2023-07-25 23:52 | PC.NURSE ---
PT REPORTS HER PAIN IS A 10 ON SCALE OF 0-10.10 MG OXYCODONE PO GIVEN.VERIFIED WITH CHRISTIE MA THAT 10 MG PO CAN BE GIVEN IF 5MG PO DOES NOT WORK.REPOSTIONED PT WITH PILLOWS FOR COMFORT.SHE HAS A WEDGE PILLOW THAT SHE CAN USE OFFERED TO PLACE IT AND SHE SAID SHE WOULD LATER IF SHE NEEDED IT.BED IN LOW POSTION,CALL LIGHT IN REACH
[2023-07-26] VITALS: BP 113/38; PULSE 80; RESP 17; TEMP 36.4; O2SAT 97
[2023-07-26] MEDS: HEPARIN SODIUM 5,000 UNIT/ML VIAL 5000 UNIT SQ ×2 (00:20→09:10)
[2023-07-26] MEDS: IBUPROFEN 600 MG TABLET PO (03:04)
[2023-07-26 04:00] VITALS: BP 112/30; PULSE 73; RESP 17; TEMP 36.3; O2SAT 96; BMI 39.3
[2023-07-26] MEDS: ACETAMINOPHEN 325MG TAB 650 MG PO ×2 (04:26→09:10)
[2023-07-26] MEDS: OXYCODONE 5MG IMMEDIATE RELEASE TABLET 5 MG PO (04:27)
--- NOTE | 2023-07-26 04:30 | PC.NURSE ---
NO ACUTE CHANGES FROM PREVIOUS ASSESSMENT,LUNGS CLEAR THROUGHTOUT,RESP.EVEN AND UNLABORED.RIGHT KNEE WITH DRESSING C.D.I.ICE POLOR PACK IN PLACED.NO DRAINAGE NOTED TO CARMEN WRAP.PT HAS RESTED SOME,SHE REPORTS SHE DOES NOT SLEEP BUT MAYBE A COUPLE HOURS .PT HAS BEEN MEDICATED WITH OXYCODONE,TYLENOL AND MOTRIN.AFEBRILE.ALERT AND ORIENTED X4.CALL LIGHT,TABLE IN REACH,BED IN LOW POSITION
[2023-07-26 05:00] VITALS: BP 92/41
--- NOTE | 2023-07-26 06:43 | EXP.DC.SUM ---
General Admission date:: 07/25/23 Discharge date: 07/26/23 HPI HPI HPI: Patient is a 57-year-old female who presented to the hospital due to surgery after right knee replacement. At time of my evaluation patient denies chest pain shortness of breath nausea vomiting diarrhea constipation dysuria fevers and chills. Patient has past medical history of hypertension hyperlipidemia, prediabetes. Hospital Course Hospital Course Hospital Course: Patient is a 57-year-old female who presented to the hospital due to surgery after right knee replacement. Admitted to medicine for monitoring overnight and evaluation by therapy. Did well overnight. Plan to discharge home with outpatient therapy. Pain stable. Problems addressed as follows: Assessment Right knee replacement due to primary osteoarthritis Leukocytosis likely chronic, patient follows up with hematology as outpatient Hypertension Hyperlipidemia Prediabetes Plan Taken for surgery on 07/24 without complication. Stable overnight. Feeling and sensation is returned to her right foot. Working with therapy. Stable to discharge home with oxycodone for pain control and to continue aspirin 325 for DVT prophylaxis for 2 weeks. Resume 81 mg aspirin thereafter. Plan to follow with outpatient therapy. Follow-up with orthopedics as scheduled. Continue home medications for chronic conditions. Patient overall doing well and stable for discharge. On room air and tolerating p.o. intake. Exam Data for Last 24 hours Vital signs and Labs for Last 24 Hours: Temp Pulse Resp BP Pulse Ox O2 Del Method 97.4 F L 73 17 92/41 L 96 Room Air 07/26/23 04:00 07/26/23 04:00 07/26/23 04:00 07/26/23 05:00 07/26/23 04:00 07/26/23 05:00 I & O for Last 24 hours: Intake & Output 07/23/23 07/24/23 07/25/23 07/26/23 23:59 23:59 23:59 23:59 Intake Total 1570 / 1570 Output Total 0 / 0 0 / 0 Balance 1570 / 1570 0 / 0 Weight 108.862 kg 117.662 kg Constitutional Constitutional: no acute distress, obese and cooperative *Routine HEENT Exam Head: Present normocephalic Eye: Present EOMI and PERRL ENT: Present mucous membranes moist *Routine Neck Exam Neck: Present supple; Absent lymphadenopathy *Routine Respiratory Exam Respiratory: Present CTA bilaterally; Absent rhonchi, wheezes or crackles *Routine Cardiovascular Exam Cardiovascular: Present RRR *Routine Abdominal Exam Abdominal: Present soft and normoactive bowel sounds; Absent tenderness *Routine Rectal Exam Patient deferred: visual exam *Routine Exam Patient deferred: external exam *Routine Extremities Exam Extremities: Absent cyanosis, clubbing or edema Comments: Right knee with surgical wound, clean dry and intact. Tender on thigh at previous site of tourniquet *Routine Skin Exam Skin: Present intact and warm; Absent rash *Routine Neurological Exam Neurological: Present alert, oriented X3 and moving all extremities; Absent altered mental status Comments: Neurovascularly intact distal to knee in right foot DS: Diagnosis Discharge Diagnosis (1) Primary osteoarthritis of knees, bilateral: Status: Acute Code(s): M17.0 - Bilateral primary osteoarthritis of knee (2) Leukocytosis: Status: Acute Code(s): D72.829 - Elevated white blood cell count, unspecified (3) Chronic pain of both knees: Status: Acute Code(s): M25.561 - Pain in right knee; M25.562 - Pain in left knee; G89.29 - Other chronic pain (4) Pre-diabetes: Status: Acute Code(s): R73.03 - Prediabetes (5) Hypertension: Status: Acute Code(s): I10 - Essential (primary) hypertension Meds Home Medications and Allergies Home Medications Medication Instructions Recorded Confirmed Type aspirin 81 mg tablet,delayed 81 mg PO DAILY 11/12/18 07/25/23 History release (Adult Low Dose Aspirin) atorvastatin 20 mg tablet 20 mg PO HS #90 tabs 11/12/18 07/25/23 History metformin 500 mg tablet 500 mg PO BID 08/17/22 07/25/23 History lisinopril 20 2 tab PO DAILY 06/02/23 07/25/23 History mg-hydrochlorothiazide 12.5 mg tablet acetaminophen 325 mg tablet 650 mg (2 x 325 mg) PO Q6HP PRN 07/26/23 Rx Mild To Moderate Pain (1-6) #0 tabs aspirin 325 mg tablet 325 mg PO DAILY 14 days #14 tabs 07/26/23 Rx docusate sodium 100 mg capsule 100 mg PO BIDP PRN Constipation 10 07/26/23 Rx days #10 caps oxycodone 5 mg tablet 5 mg PO Q4H PRN pain 3 days #18 07/26/23 Rx tabs New Prescriptions to Start Prescriptions: aspirin Fei Oconnor docusate sodium Elvin,Fei oxycodone Fei Oconnor Allergies Allergy/AdvReac Type Severity Reaction Status Date / Time Penicillins Allergy Unknown Unknown Verified 07/25/23 12:49 allergy reaction Discharge Plan Disposition Patient Disposition: Home, Self-Care Condition: Fair Follow up Plan Follow up with: Jairo Knott PT [Physical Therapist] - 07/28/23 1:00 pm Kike Rebolledo MD [Physician] - Enter time for follow up Prescriptions/Medication Reconciliation: New acetaminophen 325 mg Tablet 650 mg PO Q6HP PRN (Reason: Mild To Moderate Pain (1-6)) Qty: 0 0RF aspirin 325 mg Tablet 325 mg PO DAILY 14 Days Qty: 14 0RF docusate sodium 100 mg Capsule 100 mg PO BIDP PRN (Reason: Constipation) 10 Days Qty: 10 0RF Continued atorvastatin 20 mg tablet 20 mg PO HS Qty: 90 Patient Comments: TAKE 1 TABLET BY MOUTH AT BEDTIME FOR CHOLESTEROL metformin 500 mg tablet 500 mg PO BID Patient Comments: TAKE 1 TABLET BY MOUTH TWICE DAILY WITH MEALS FOR 90 DAYS lisinopril-hydrochlorothiazide 20-12.5 mg tablet 2 tab PO DAILY oxycodone 5 mg tablet 5 mg PO Q4H PRN (Reason: pain) 3 Days Qty: 18 0RF Held aspirin [Adult Low Dose Aspirin] 81 mg tablet,delayed release (DR/EC) 81 mg PO DAILY Hold Instructions: while taking higher dose of Aspirin Problem Reconciliation Problems Reviewed?: Yes Patient Discharge Instructions ACTIVITY: Continue current activity and Ambulate as tolerated DIET: continue same diet Providers Primary Care Provider: Mario Wei Admit Provider: Kike Rebolledo Attending Provider: Kike Rebolledo
[2023-07-26 06:48] LABS: Basophils # 0.1 K/mm3 (0-0.2); Basophils % 0.6 % (0.1-2.0); Eosinophils # 0.1 K/mm3 (0.0-0.4); Eosinophils % 0.3 % (0.1-12.0); Hemoglobin 11.6 g/dL (12.2-16.2); Lymphocytes # 3.6 K/mm3 (0.7-4.5); Lymphocytes % 24.5 % (10-50); Mean Corpuscular HGB Conc 33.1 g/dL (31.8-35.4); Mean Corpuscular Hemoglobin 29.3 pg (27.0-31.2); Mean Corpuscular Volume 88.7 fl (81-99); Mean Platelet Volume 8.4 fl (7.4-10.4); Monocytes % 6.9 % (1.7-9.3); Neutrophils # 9.9 K/mm3 (1.8-7.8); Neutrophils % 67.6 % (37.0-80.0); Platelet Count 260 K/mm3 (142-424); Red Blood Count 3.95 M/mm3 (4.20-5.40); Red Cell Distribution Width 14.9 % (11.5-17.5); White Blood Count 14.6 K/mm3 (4.8-10.8)
[2023-07-26 07:25] LABS: Anion Gap 7.6 mEq/L (5-15); Blood Urea Nitrogen 14 mg/dl (7-17); Calcium 8.5 mg/dl (8.4-10.2); Carbon Dioxide 28 mmol/L (22.0-30.0); Chloride 99 mmol/L (98-107); Creatinine Clearance Estimated 163 mL/min (50-200); Estimated Glomerular Filt Rate 86 ml/min (>60); GFR (African American) 104 ML/MIN (>60); Glucose 143 mg/dl (74-100); Potassium 3.6 mmoL/L (3.5-5.1); Sodium 131 mmol/L (136-145)
[2023-07-26 08:00] VITALS: BP 90/52; PULSE 74; RESP 20; TEMP 36.5; O2SAT 95
[2023-07-26] MEDS: KETOROLAC 30MG/ML VIAL 15 MG IV (09:09)
[2023-07-26] MEDS: ASPIRIN 325MG TABLET 325 MG PO (09:11)
[2023-07-26] MEDS: METFORMIN 500MG TABLET 500 MG PO (09:11)
[2023-07-26 12:31] LABS: POC Glucose,Bedside 143 (70-110)
[2023-07-26 14:07] VITALS: BP 106/54; PULSE 72; RESP 16; TEMP 36.6; O2SAT 95
--- NOTE | 2023-07-26 14:07 | EXP.ANES.II ---
[facility] Anesthesia Record Part II Anesthesia Record Part II Discharge Time: 12:30 Destination: Medical Surgical Department PACU nurse assessment reviewed?: Yes Patient Condition:: Good Anesthesia Complications:: None Swallowing reflex intact?: Yes Airway Patency: Patent Cyanosis?: No Blood Pressure: 106/54 SaO2: 95 Respiratory Rate: 16 Pulse Rate: 72 Temperature: 98 F Mental Status: Alert & Oriented Pain level:: 0 Nausea and/or vomitting:: None Intake, IV Amount: 0 Hydration: Adequate
--- NOTE | 2023-07-28 14:01 | CARE MANAGER ---
Attempted to contact patient x2 related to hospital discharge. Left VM messagel. FRANCESCA Jasmine
== END 2023-07-26 10:45 | disposition home or self-care (01) ==
LOC: ICU 09:42 → OB 18:37
PROVIDERS: Admitting Provider Orthopaedic Surgery; PCP Internal Medicine; Visit Provider Orthopaedic Surgery
PROC: (CPT 27447; principal; 2023-07-25 10:00)
DX: M17.11 Unilateral primary osteoarthritis, right knee (principal); M25.561 Pain in right knee; I10 Essential (primary) hypertension; Z79.899 Other long term (current) drug therapy; I25.10 Atherosclerotic heart disease of native coronary artery without angina pectoris
CPT/HCPCS: 27447; 36415; 73560; 80048; 82962; 85025; 96374; 97162; 97165; 97535; C1713; C1776; G0378; J0690; J2704

== ENCOUNTER 2023-08-10 07:22 | Outpatient (CLI) | payer BC, SELFPAY ==
[2023-08-10 07:50] LABS: Basophils # 0.2 K/mm3 (0-0.2); Basophils % 0.8 % (0.1-2.0); Eosinophils # 0.5 K/mm3 (0.0-0.4); Eosinophils % 2.1 % (0.1-12.0); Hematocrit 39.1 % (37.0-47.0); Hemoglobin 12.2 g/dL (12.2-16.2); Lymphocytes % 42.3 % (10-50); Mean Corpuscular HGB Conc 31.2 g/dL (31.8-35.4); Mean Corpuscular Hemoglobin 27.9 pg (27.0-31.2); Mean Corpuscular Volume 89.5 fl (81-99); Mean Platelet Volume 7.3 fl (7.4-10.4); Monocytes # 0.7 K/mm3 (0.1-1.0); Monocytes % 3.2 % (1.7-9.3); Neutrophils # 10.9 K/mm3 (1.8-7.8); Neutrophils % 51.6 % (37.0-80.0); Platelet Count 702 K/mm3 (142-424); Red Blood Count 4.37 M/mm3 (4.20-5.40); Red Cell Distribution Width 14.8 % (11.5-17.5); White Blood Count 21.1 K/mm3 (4.8-10.8)
[2023-08-10 07:54] LABS: MANUAL DIFFERENTIAL MANUAL DIFFERENTIAL (MANUAL DIFF)
[2023-08-10 08:21] LABS: Anion Gap 12.2 mEq/L (5-15); Blood Urea Nitrogen 20 mg/dl (7-17); Calcium 9.9 mg/dl (8.4-10.2); Carbon Dioxide 30 mmol/L (22.0-30.0); Chloride 97 mmol/L (98-107); Estimated Glomerular Filt Rate 74 ml/min (>60); GFR (African American) 89 ML/MIN (>60); Glucose 137 mg/dl (74-100); Potassium 4.2 mmoL/L (3.5-5.1); Sodium 135 mmol/L (136-145)
[2023-08-10 08:29] LABS: Eosinophils % 2 % (0-3); Lymphocytes % 36 % (10-50); Monocytes % 5 % (2-9); Neutrophils % 57 % (42-76); Total Cells Counted 100
[2023-08-10 08:30] LABS: Platelet Estimate Moderate Increase; RBC Morphology Normal
== END 2023-08-10 23:59 ==
LOC: LAB 07:23
PROVIDERS: PCP Internal Medicine; Visit Provider Internal Medicine
DX: I10 Essential (primary) hypertension (principal); D64.9 Anemia, unspecified
CPT/HCPCS: 36415; 80048; 85007; 85025

== ENCOUNTER 2023-08-16 10:26 | Outpatient (CLI) | payer BC, SELFPAY ==
--- NOTE | 2023-08-16 10:36 | XR_ITS ---
FINAL REPORT CLINICAL HISTORY: right tka x 3 wks COMPARISON: 07/25/2023 FINDINGS: Three views of the right knee were obtained. There is motion on the AP view. Prior knee arthroplasty is noted. No evidence of fracture or dislocation. The bony alignment is normal. The joint spaces are preserved. There is a large joint effusion. No localized soft tissue abnormality is identified. IMPRESSION: No acute abnormality identified. Large joint effusion. Reviewed, Interpreted and Dictated by Ag Cannon III, MD Transcribed by Latasha Liu Authenticated and [facility]
== END 2023-08-16 23:59 ==
LOC: RAD 10:26
PROVIDERS: PCP Internal Medicine; Visit Provider Orthopaedic Surgery
DX: M25.561 Pain in right knee (principal)
CPT/HCPCS: 73562

== ENCOUNTER 2023-09-25 16:00 | Outpatient (RCR) | payer BC, SELFPAY ==
--- NOTE | 2023-07-28 15:47 | HMH.PTOPEV ---
PT Outpatient Evaluation Rehab PT Outpatient Evaluation Start: 07/28/23 14:58 Freq: Status: Active Protocol: Document 07/28/23 14:59 CACHORRO (Rec: 07/28/23 15:47 PHOVENANCIO [id number]) E-signed By Jairo Knott, PT Outpatient Therapy Subjective History Subjective History Patient is a 57 year old female who presents for initial evaluation s/p R TKA. The patient reports that surgery went well and she was able to get home from the hospital without much trouble. The patient reports that she has a lot of pain whenever she bends her knee or straightens it out. Her offers a lot of help for her walking through the house. New diagnosis of cancer in past 12 No months? Chief Complaint Pain,Stiff,Swelling,Weakness Symptom Type Ache,Sharp Symptoms Relieved By Rest/Positioning,Ice,OTC Meds Symptoms Aggravated By Standing,Bending/Stooping, Walking Prior Functional Limitations None Current Functional Limitations Lifting,Standing,Sitting, Squatting,Recreation Activity, Walking,Stairs,Balance Symptom Description Constant but Variable,Pain at Rest Level of pain today (0-10) 3 Pain scale - at its best (0-10) 2 Pain scale - at its worst (0-10) 10 Hip/Knee Eval Gait Observation General Gait Pattern Observation Antalgic Gait,Decrease Weight Bear (R),Decrease Stride Lngth (R) Assistive Device Assistive Devices Rolling / Wheeled Walker Palpation Tenderness right Knee Palpation Finding Tenderness Knee Palpation Overall Comment Global Tendernes to palpation 2/4 to barbara-surgical region MMT Hip Flexion Strength Grade 2 Poor Hip Abduction Strength Grade 3 Fair Knee Extension Strength Grade 1 Trace Knee Flexion Strength Grade 2 Poor ROM left Knee Extension Active Range of Motion ( 0 degrees) Knee Flexion Active Range of Motion ( 125 degrees) right Knee Extension Active Range of Motion ( 16 degrees) Knee Extension Passive Range of Motion ( -14 degrees) Knee Flexion Active Range of Motion ( 48 degrees) Knee Flexion Passive Range of Motion ( 50 degrees) Sensation Comment no sensation deficits noted Lower Extremity Functional Index Activities Today, do you or would you have any difficulty at all with: a.Any of your usual work, housework or Extreme difficulty or unable school activities to perform activity b. Your usual hobbies, recreational or Extreme difficulty or unable sporting activities to perform activity c. Getting into or out of the bath Quite a bit of difficulty d. Walking between rooms Moderate difficulty e. Putting on your shoes or socks Quite a bit of difficulty f. Squatting Quite a bit of difficulty g. Lifting an object, like a bag of Extreme difficulty or unable groceries from the floor to perform activity h. Performing light activities around Extreme difficulty or unable your home to perform activity i. Performing heavy activities around Extreme difficulty or unable your home to perform activity j. Getting into or out of a car Extreme difficulty or unable to perform activity k. Walking 2 blocks Extreme difficulty or unable to perform activity l. Walking a mile Extreme difficulty or unable to perform activity m. Going up or down 10 stairs (about 1 Extreme difficulty or unable flight of stairs) to perform activity n. Standing for 1 hour Extreme difficulty or unable to perform activity o. Sitting for 1 hour Quite a bit of difficulty p. Running on even ground Extreme difficulty or unable to perform activity q. Running on uneven ground Extreme difficulty or unable to perform activity r. Making sharp turns while running fast Extreme difficulty or unable to perform activity s. Hopping Extreme difficulty or unable to perform activity t. Rolling over in bed Quite a bit of difficulty LEFI Score Lower Extremity Functional Index Score 7 Miscellaneous Dx PT Eval Objective Objective TU seconds with RW Outpatient Therapy Assessment Impairments Problems/Impairmments Palpation Tenderness,Impaired Range of Motion,Impaired Strength,Impaired Gait Pattern ,Impaired Walking,Impaired Standing,Impaired Sitting, Impaired Stair Climbing, Impaired Recreational Activities,Impaired TUG Time Prognosis Rehab Potential Good Comment Patient presents for initial evaluation s/p R TKA. The patient demonstrates significant deficits in ROM, strength, and mobility. Skilled Intervention is indicated to promote a return to the patient's prior level of function. Clinical Impression Consistent with Diagnosis Yes Short Term Goals Number of Weeks 3 Decreased Palpation Tenderness Yes: 1/4 R Leg Increase Range of Motion Yes: 75 r knee flexion and -5 knee extension Increase Strength Yes: 4/5 r LE Globally Improve Gait Pattern with Assistive Yes: 2/10 pain Device Increase Ability to Stand Yes: 15 minutes 2/10 pain Improve LEFI Score Yes: improve to 25 Decrease TUG Time Yes: 35 seconds with AD Decrease Subjective C/O Pain Yes: 6/10 at worst Patient to be Ind w/ HEP Yes [employer] Analyst Goals Number of Weeks 6 Decreased Palpation Tenderness Yes: 0/4 Increase Range of Motion Yes: R knee flexion 100 and knee extension 0 Increase Strength Yes: 5/5 globally to RLE Improve Gait Pattern without Assistive Yes: no deviations Device Increase Ability to Stand Yes: 30 minutes Improve LEFI Score Yes: improve to 40 Decrease TUG Time Yes: 25 seconds Decrease Subjective C/O Pain Yes: 2/10 at worst Patient to be Ind w/ Advanced HEP Yes Outpatient Therapy Plan of Care Treatment Plan May Include Therapeutic Exercise Including Home Yes Exercise Program Manual Therapy Techniques Yes Neuromuscular Re-education Yes Therapeutic Activities to Return to Yes Previous Functional/Work Level Gait Training Yes ADL/Self Care Education Yes Mechanical Traction Yes Dry Needling Yes Thermal Modalities Yes Electrical Stimulation Yes Ultrasound/Phonophoresis Yes Iontophoresis Yes Parrafin Yes Orthotics/Bracing/Splinting Yes Massage Yes Manual Lymphatic Drainage Yes Wound Care Yes Eval/Re-Eval Yes Aquatic Therapy Yes Frequency Times per week 2-3/week Duration Number of Weeks 6 Addendums This patient is a candidate for social No or vocational rehab? Patient/Guardian verbally acknowledges Yes understanding of treatment program and consents to further treatment? Patient/Guardian verbally acknowledges Yes understanding of diagnosis, prognosis and goals for treatment? Eval Complexity PT Charges 32038 - High Complexity Shoulder/Elbow Eval Shoulder Objective Measurements Elbow Objective Measurements PHYSICIAN CERTIFICATION: I certify the specified therapy services for Kendal Lee are required, authorized, and reviewed every 30 days.
--- NOTE | 2023-08-28 16:50 | HMH.RHREAS ---
Rehab Reassessment Rehab OP Re-assessment Start: 07/28/23 14:58 Freq: Status: Active Protocol: Document 08/28/23 16:43 PHORNE (Rec: 08/28/23 16:50 PHORNE [id number]) E-signed By Jairo Knott PT Lower Extremity Functional Index Activities Today, do you or would you have any difficulty at all with: a.Any of your usual work, housework or A little bit of difficulty school activities b. Your usual hobbies, recreational or Moderate difficulty sporting activities c. Getting into or out of the bath A little bit of difficulty d. Walking between rooms A little bit of difficulty e. Putting on your shoes or socks A little bit of difficulty f. Squatting A little bit of difficulty g. Lifting an object, like a bag of Moderate difficulty groceries from the floor h. Performing light activities around A little bit of difficulty your home i. Performing heavy activities around Moderate difficulty your home j. Getting into or out of a car A little bit of difficulty k. Walking 2 blocks Moderate difficulty l. Walking a mile Moderate difficulty m. Going up or down 10 stairs (about 1 Moderate difficulty flight of stairs) n. Standing for 1 hour Moderate difficulty o. Sitting for 1 hour Moderate difficulty p. Running on even ground Extreme difficulty or unable to perform activity q. Running on uneven ground Extreme difficulty or unable to perform activity r. Making sharp turns while running fast Extreme difficulty or unable to perform activity s. Hopping Extreme difficulty or unable to perform activity t. Rolling over in bed Moderate difficulty LEFI Score Lower Extremity Functional Index Score 39 Rehab Re-assessment Subjective Subjective Patient presents for re- assessment and reports a 75% improvement. She reports that walking has gotten easier and she no longer requires use of her walker. She also reports that she is able to do most of her ADLs but continues to have increased pain. She is able to drive. She reports her current pain at a 3/10, her best pain at a 3/10 and her worst pain at a 6/10. Objective Objective Notes Strength of RLE: Hip Flexion: 4-/5 Hip Abd: 4-/5 Hip Add: 4-/5 Knee Extension 4-/5 Knee FLexion: 4/5 R Knee ROM: -4-110 Gait: Antalgic Gait pattern with decreased WB on RLE and decreased step length with RLE . Assessment Progress Assessment Progressing as Expected Assessment Notes Patient has demonstrated improvements in ROM and some improvements in strength. Patient also demonstrates improved subjective reports of pain and function. Skilled PT remains indicated. Patient goals met ST,5,6,[address] Go[address] Met ST,3,4 LTG 1,3,4,5,6,7 Revised Goals LTG: Improve R Knee ROM to 0- 130 Plan Plan Continue as per POC. Increased focus on WB activities that promote dynamic stability and strengthening. Frequency of Therapy 2-3/week Duration of therapy 4-6 weeks Time and Billing Re-Eval Time 11 Re-Eval Billing Units 1 PHYSICIAN CERTIFICATION: I certify the specified therapy services for Kendal Lee are required, authorized, and reviewed every 30 days.
== END 2023-09-25 17:00 | disposition home or self-care (01) ==
LOC: PT 16:00
PROVIDERS: Visit Provider Orthopaedic Surgery
DX: M25.561 Pain in right knee (principal); Z96.651 Presence of right artificial knee joint
CPT/HCPCS: 97010; 97014; 97016; 97110; 97112; 97140; 97163; 97164; 97530; 97535; G0283

== ENCOUNTER 2023-10-16 14:46 | Outpatient (CLI) | payer BC, SELFPAY ==
--- NOTE | 2023-10-16 14:49 | XR_ITS ---
FINAL REPORT CLINICAL HISTORY: right knee tka FINDINGS: RIGHT KNEE 3 views of the right knee were obtained. 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 There is no acute fracture or dislocation. Visualized joint spaces are normally aligned. There is a large joint effusion. Soft tissues are unremarkable. IMPRESSION: Large joint effusion without acute bony abnormality. Reviewed, Interpreted and Dictated by Ag Cannon III, MD Transcribed by Tamar Crook Authenticated and [facility]
== END 2023-10-16 23:59 | disposition home or self-care (01) ==
LOC: RAD 14:46
PROVIDERS: PCP Internal Medicine; Visit Provider Orthopaedic Surgery
DX: M25.561 Pain in right knee (principal); Z96.651 Presence of right artificial knee joint
CPT/HCPCS: 73562

== ENCOUNTER 2023-10-20 15:17 | Outpatient (CLI) | payer BC, SELFPAY ==
[2023-10-20 14:35] LABS: Alanine Aminotransferase 24 U/L (12-78); Albumin Level 4.4 g/dl (3.5-5.0); Albumin/Globulin Ratio 1.5 (1.1-1.8); Alkaline Phosphatase 93 U/L (38-126); Anion Gap 14.3 mEq/L (5-15); Aspartate Amino Transferase 25 U/L (14-36); Bilirubin,Total 0.8 mg/dl (0.2-1.3); Blood Urea Nitrogen 17 mg/dl (7-17); Calcium 10.1 mg/dl (8.4-10.2); Carbon Dioxide 32 mmol/L (22.0-30.0); Chloride 97 mmol/L (98-107); Chol/HDL Ratio 4.8 (1-3.5); Cholesterol 173 mg/dl (140-200); Estimated Glomerular Filt Rate 73 ml/min (>60); GFR (African American) 89 ML/MIN (>60); Glucose 113 mg/dl (74-100); HDL Cholesterol 36 mg/dl (40-60); Potassium 4.3 mmoL/L (3.5-5.1); Sodium 139 mmol/L (136-145); Total Protein,Serum 7.4 g/dl (6.3-8.2); Triglycerides 187 mg/dl (30-150); Uric Acid 9.4 mg/dl (2.5-6.2); VLDL Cholesterol 37 mg/dL (0-40)
[2023-10-20 14:46] LABS: Direct LDL Cholesterol 94.45 mg/dL (100-129)
[2023-10-20 14:55] LABS: Hemoglobin A1C 6.3 % (4.0-6.0)
== END 2023-10-20 23:59 | disposition home or self-care (01) ==
LOC: LAB.DROPOF 15:17
PROVIDERS: PCP Internal Medicine; Visit Provider Internal Medicine
DX: E78.5 Hyperlipidemia, unspecified (principal); I10 Essential (primary) hypertension; E11.9 Type 2 diabetes mellitus without complications; Z79.84 Long term (current) use of oral hypoglycemic drugs; M10.9 Gout, unspecified
CPT/HCPCS: 80053; 80061; 83036; 84550

== ENCOUNTER 2023-10-26 08:00 | Outpatient (RCR) | payer BC, SELFPAY | END 2023-10-26 09:00 | disposition home or self-care (01) | LOC: PT 08:00 | PROVIDERS: Visit Provider Internal Medicine | DX: M54.50 Low back pain, unspecified (principal) | CPT/HCPCS: 97010; 97014; 97110; 97163; 97164; 97530; G0283 ==

== ENCOUNTER 2024-04-23 12:21 | Outpatient (CLI) | payer BC, SELFPAY ==
[2024-04-23 12:27] LABS: Basophils # 0.1 K/mm3 (0-0.2); Basophils % 0.8 % (0.1-2.0); Eosinophils # 0.2 K/mm3 (0.0-0.4); Eosinophils % 0.9 % (0.1-12.0); Hematocrit 44.2 % (37.0-47.0); Hemoglobin 14.3 g/dL (12.2-16.2); Lymphocytes # 6.8 K/mm3 (0.7-4.5); Lymphocytes % 42.8 % (10-50); Mean Corpuscular HGB Conc 32.4 g/dL (31.8-35.4); Mean Corpuscular Hemoglobin 27.9 pg (27.0-31.2); Mean Platelet Volume 7.4 fl (7.4-10.4); Monocytes # 0.6 K/mm3 (0.1-1.0); Neutrophils # 8.2 K/mm3 (1.8-7.8); Neutrophils % 51.6 % (37.0-80.0); Platelet Count 306 K/mm3 (142-424); Red Blood Count 5.14 M/mm3 (4.20-5.40); Red Cell Distribution Width 14.7 % (11.5-17.5)
[2024-04-23 12:30] LABS: MANUAL DIFFERENTIAL MANUAL DIFFERENTIAL (MANUAL DIFF)
[2024-04-23 12:54] LABS: Creatinine,Urine Random 189 mg/dL (Not Estab.)
[2024-04-23 12:58] LABS: Microalbumin/Creatinine Ratio 8.3
[2024-04-23 13:08] LABS: Chloride 101 mmol/L (98-107)
[2024-04-23 13:09] LABS: Albumin Level 4.2 g/dl (3.5-5.0); Potassium 4.6 mmoL/L (3.5-5.1); Sodium 138 mmol/L (136-145)
[2024-04-23 13:11] LABS: Anion Gap 9.6 mEq/L (5-15); Blood Urea Nitrogen 20 mg/dl (7-17); Carbon Dioxide 32 mmol/L (22.0-30.0); Estimated Glomerular Filt Rate 64 ml/min (>60); GFR (African American) 78 ML/MIN (>60)
[2024-04-23 13:12] LABS: Alanine Aminotransferase 26 U/L (12-78); Albumin/Globulin Ratio 1.8 (1.1-1.8); Alkaline Phosphatase 93 U/L (38-126); Aspartate Amino Transferase 25 U/L (14-36); Bilirubin,Total 0.8 mg/dl (0.2-1.3); Calcium 9.6 mg/dl (8.4-10.2); Chol/HDL Ratio 3.6 (1-3.5); Cholesterol 185 mg/dl (140-200); Globulin 2.4 g/dL (1.3-3.2); Glucose 100 mg/dl (74-100); HDL Cholesterol 51 mg/dl (40-60); Total Protein,Serum 6.6 g/dl (6.3-8.2); Triglycerides 141 mg/dl (30-150); VLDL Cholesterol 28 mg/dL (0-40)
[2024-04-23 13:50] LABS: Direct LDL Cholesterol 102.95 mg/dL (100-129)
[2024-04-23 14:11] LABS: Lymphocytes % 50 % (10-50); Monocytes % 2 % (2-9); Neutrophils % 48 % (42-76); Platelet Estimate Normal; RBC Morphology Normal; Total Cells Counted 100
[2024-04-23 20:17] LABS: Hemoglobin A1C 6.4 % (4.0-6.0)
== END 2024-04-23 23:59 | disposition home or self-care (01) ==
LOC: LAB.DROPOF 12:21
PROVIDERS: PCP Internal Medicine; Visit Provider Internal Medicine
DX: E78.5 Hyperlipidemia, unspecified (principal); E11.9 Type 2 diabetes mellitus without complications; I10 Essential (primary) hypertension; Z79.84 Long term (current) use of oral hypoglycemic drugs
CPT/HCPCS: 80053; 80061; 82043; 82570; 83036; 85007; 85025; 85027

== ENCOUNTER 2024-10-24 15:35 | Outpatient (CLI) | payer BC, SELFPAY ==
[2024-10-24 14:36] LABS: Basophils # 0.1 K/mm3 (0-0.2); Basophils % 0.6 % (0.1-2.0); Eosinophils # 0.2 Kmm3 (0.0-0.4); Eosinophils % 1.3 % (0.1-12.0); Hematocrit 42.7 % (37.0-47.0); Hemoglobin 13.2 g/dL (12.2-16.2); Immature Granulocytes # 0.07 10^3uL; Immature Granulocytes % 0.5 %; Lymphocytes # 6.5 K/mm3 (0.7-4.5); Lymphocytes % 45.9 % (10-50); Mean Corpuscular HGB Conc 30.9 g/dL (31.8-35.4); Mean Corpuscular Hemoglobin 27.3 pg (27.0-31.2); Mean Corpuscular Volume 88.4 fl (81-99); Monocytes # 0.6 K/mm3 (0.1-1.0); Monocytes % 3.9 % (1.7-9.3); Neutrophils # 6.8 K/mm3 (1.8-7.8); Neutrophils % 47.8 % (37.0-80.0); Nucleated Red Blood Cells # 0 10^3/uL; Nucleated Red Blood Cells % 0 %; Platelet Count 308 K/mm3 (142-424); Red Blood Count 4.83 M/mm3 (4.20-5.40); Red Cell Distribution Width 14.1 % (11.5-17.5); Red Cell Distribution Width-SD 45.1 fL; White Blood Count 14.2 K/mm3 (4.8-10.8)
[2024-10-24 14:37] LABS: MANUAL DIFFERENTIAL MANUAL DIFFERENTIAL (MANUAL DIFF)
[2024-10-24 14:47] LABS: Albumin Level 4.3 g/dl (3.5-5.0); Chloride 101 mmol/L (98-107); Sodium 137 mmol/L (136-145)
[2024-10-24 14:48] LABS: Potassium 4.4 mmoL/L (3.5-5.1)
[2024-10-24 14:50] LABS: Alanine Aminotransferase 23 U/L (12-78); Alkaline Phosphatase 78 U/L (38-126); Anion Gap 8.4 mEq/L (5-15); Aspartate Amino Transferase 24 U/L (14-36); Bilirubin,Total 0.6 mg/dl (0.2-1.3); Blood Urea Nitrogen 18 mg/dl (7-17); Calcium 10.7 mg/dl (8.4-10.2); Carbon Dioxide 32 mmol/L (22.0-30.0); Cholesterol 174 mg/dl (140-200); Estimated Glomerular Filt Rate 73 ml/min (>60); GFR (African American) 89 ML/MIN (>60); Globulin 2.2 g/dL (1.3-3.2); Glucose 123 mg/dl (74-100); Total Protein,Serum 6.5 g/dl (6.3-8.2); Triglycerides 179 mg/dl (30-150); VLDL Cholesterol 36 mg/dL (0-40)
[2024-10-24 14:51] LABS: Chol/HDL Ratio 4.4 (1-3.5); HDL Cholesterol 40 mg/dl (40-60)
[2024-10-24 15:06] LABS: Hemoglobin A1C 6.4 % (4.0-6.0)
[2024-10-24 16:02] LABS: Eosinophils % 3 % (0-3); Lymphocytes % 42 % (10-50); Monocytes % 4 % (2-9); Neutrophils % 50 % (42-76); Total Cells Counted 100
[2024-10-24 16:03] LABS: Burr Cells 1+; Ovalocytes 1+; Platelet Estimate Normal; Poikilocytosis 1+; Target Cells 1+
== END 2024-10-24 23:59 | disposition home or self-care (01) ==
LOC: LAB.DROPOF 15:35
PROVIDERS: PCP Internal Medicine; Visit Provider Internal Medicine
DX: E78.5 Hyperlipidemia, unspecified (principal); E11.9 Type 2 diabetes mellitus without complications; I10 Essential (primary) hypertension
CPT/HCPCS: 80053; 80061; 83036; 85007; 85025

== ENCOUNTER 2025-04-28 09:25 | Outpatient (CLI) | payer BC, SELFPAY ==
[2025-04-28 13:54] LABS: Hemoglobin A1C 6.9 % (4.0-6.0)
[2025-04-28 14:18] LABS: Alanine Aminotransferase 21 U/L (12-78); Albumin Level 4.5 g/dl (3.5-5.0); Albumin/Globulin Ratio 1.7 (1.1-1.8); Alkaline Phosphatase 92 U/L (38-126); Anion Gap 15.3 mEq/L (5-15); Aspartate Amino Transferase 22 U/L (14-36); Bilirubin,Total 0.8 mg/dl (0.2-1.3); Blood Urea Nitrogen 15 mg/dl (7-17); Calcium 9.6 mg/dl (8.4-10.2); Carbon Dioxide 28 mmol/L (22.0-30.0); Chloride 100 mmol/L (98-107); Cholesterol 148 mg/dl (140-200); Creatinine,Serum 0.90 mg/dl (0.52-1.04); Estimated Glomerular Filt Rate 64 ml/min (>60); GFR (African American) 77 ML/MIN (>60); Globulin 2.7 g/dL (1.3-3.2); Glucose 123 mg/dl (74-100); HDL Cholesterol 41 mg/dl (40-60); Potassium 4.3 mmoL/L (3.5-5.1); Sodium 139 mmol/L (136-145); Total Protein,Serum 7.2 g/dl (6.3-8.2); Triglycerides 179 mg/dl (30-150)
--- OUTSIDE RECORDS SUMMARY | 2025-04-29 16:49 | XMS_ITS | Data Portability ---
Author Organization [facility] Address [address] [facility] [address] [place] [address] Care Team Providers Care Tree Driller Name Role Phone ALBANIA REBOLLEDO Referring Provider Assessment Encounter Date Assessment Date Assessment LastModified by Organization Details LastModified Time 05/02/2024 05/02/2024 Interval Hx: Ms. Lee follows up with low back pain. She is S/P SI joint injection resulting in 100% relief. She is happy with this result, reports improvement in mobility, sleep, and ability to perform ADLs. Overall, she reports her pain is well controlled. Episodes of low back pain with increased activity such as house work. This improves with rest. Xray was reviewed today. Continues ibuprofen as needed. Continues home exercises daily. No new health changes reported today. Pain History: She was referred by Dr. Rebolledo, has a history of chronic low back pain. She underwent right knee replacement, now has focally located right sided low back and buttock pain. Denies incontinence or myelopathy. No significant radicular pain. No prior injection therapy in the low back. Physical therapy in the past without benefit. Past Medical History: Hyperlipidemia, diabetes using metformin, hypertension Imaging: L XR 03/11/24 diffuse degenerative spurring with several levels of disc space narrowing. Grade 1 anterolisthesis of L3 on L4, L4 on L5. No instability with flexion/extension. Lumbar plain films reviewed today, multilevel spondylosis with sclerosis of bilateral SI joints The above image findings were discussed with the patient. Surgical evaluation/ history: Right knee replacement Conservative Treatments: Patient has failed conservative measures for greater than 6 weeks including physical therapy/chiropract ic care/spinal manipulation, a monitored home exercise program, and/or NSAIDs within the last six months. Interventional treatment history: 04/04/2024 #1 Sacroiliac Right joint - 100% relief Previous analgesics: Current analgesics: NSAIDs Anticoagulant/Anti platelet Medications: ASA 325 ASSESSMENT/PLAN This is a 58-year-old female with right-sided low back and buttock pain. This has improved following SI joint injection. She understands this may be repeated every 3 months as needed. Briefly discussed LMBB/RFA today. As low back pain is managed at this time, we will defer. We will plan to follow up in 2 months to reassess and discuss need for repeat injection. She may contact the clinic for sooner follow up if needed. [email or web address] Not available 05/02/2024 12:30:28 06/12/2024 06/12/2024 Interval Hx: Ms. Lee follows up with low back pain. She has treated with this clinic for her chronic pain for 3 months. She would like to plan for a repeat SI joint injection. She continues to report relief with the previous injection, but relief has dissipated to approximately 50%. The next injection is due in 3 weeks. She would like to repeat the injection for sustained pain relief. Continues ibuprofen as needed. Continues home exercises daily. No new health changes reported today. Pain History: She was referred by Dr. Rebolledo, has a history of chronic low back pain. She underwent right knee replacement, now has focally located right sided low back and buttock pain. Denies incontinence or myelopathy. No significant radicular pain. No prior injection therapy in the low back. Physical therapy in the past without benefit. Past Medical History: Hyperlipidemia, diabetes using metformin, hypertension Imaging: L XR 03/11/24 diffuse degenerative spurring with several levels of disc space narrowing. Grade 1 anterolisthesis of L3 on L4, L4 on L5. No instability with flexion/extension. Lumbar plain films reviewed today, multilevel spondylosis with sclerosis of bilateral SI joints The above image findings were discussed with the patient. Surgical evaluation/ history: Right knee replacement Conservative Treatments: Patient has failed conservative measures for greater than 6 weeks including physical therapy/chiropract ic care/spinal manipulation, a monitored home exercise program, and/or NSAIDs within the last six months. Interventional treatment history: 04/04/2024 #1 Sacroiliac Right joint - 100% relief Previous analgesics: Current analgesics: NSAIDs Anticoagulant/Anti platelet Medications: ASA 325 ASSESSMENT/PLAN This is a 58-year-old female with right-sided low back and buttock pain. We will plan for a repeat SI joint injection at the 3 month laure for sustained relief. The recommended procedure is discussed with the patient in detail. Questions related to the procedure are answered. This procedure is ordered today as she has failed at least 4 weeks of conservative treatment including home exercises and medication management. We discussed LMBB/RFA today to address axial pain. She defers, feels low back pain improves with rest, injection therapy not necessary at this time. We will follow up after the injection to assess benefit and further treatment planning. She may contact the clinic for sooner follow up if needed. [email or web address] Not available 06/12/2024 09:29:19 09/02/2024 09/02/2024 Interval Hx: Ms. Lee follows up with low back pain. She has treated with this clinic for her chronic pain for over 3 months. She is S/P repeat SI joint injection resulting in approximately 50% relief, but does not feel this was effective enough to continue every 3 months. She continues to report pain interfering with mobility and ADLs. This pain improves with sitting and rest. Continues ibuprofen as needed. Continues home exercises daily. No new health changes reported today. Pain History: She was referred by Dr. Rebolledo, has a history of chronic low back pain. She underwent right knee replacement, now has focally located right sided low back and buttock pain. Denies incontinence or myelopathy. No significant radicular pain. No prior injection therapy in the low back. Physical therapy in the past without benefit. Past Medical History: Hyperlipidemia, diabetes using metformin, hypertension Imaging: L XR 03/11/24 diffuse degenerative spurring with several levels of disc space narrowing. Grade 1 anterolisthesis of L3 on L4, L4 on L5. No instability with flexion/extension. Lumbar plain films reviewed today, multilevel spondylosis with sclerosis of bilateral SI joints The above image findings were discussed with the patient. Surgical evaluation/ history: Right knee replacement Conservative Treatments: Patient has failed conservative measures for greater than 6 weeks including physical therapy/chiropract ic care/spinal manipulation, a monitored home exercise program, and/or NSAIDs within the last six months. Interventional treatment history: 07/16/2024 #2 Sacroiliac Right Joint; 50% pain relief 04/04/2024 #1 Sacroiliac Right joint - 100% relief Previous analgesics: Current analgesics: NSAIDs Anticoagulant/Anti platelet Medications: ASA 325 ASSESSMENT/PLAN This is a 59-year-old female with axial low back pain. We again discussed LMBB/RFA to address axial low back pain as SI injections did not provide significant, lasting benefit. She defers but may contact the office if she would like to have the order placed. The recommended procedure is discussed with the patient in detail. Questions related to the procedure are answered. At this time she elects to follow up with our clinic as needed. [email or web address] Not available 09/02/2024 09:12:48 Plan of Treatment Reminders Order Date Submit Date Provider Last Modified By Organization Details Last Modified Time Details Appointments None recorded. Lab None recorded. Referral None recorded. Procedures remote therapeutic monitoring to monitor musculoskel etal system (PROC) - Patient prescribed RTM (Remote Therapeutic Monitoring) to prevent further functional decline and monitor treatment effectivene ss. Patient will complete medication tracking and physical therapy exercises as instructed. Monitoring to take place over the next 12 months using the [employer] Jessica to also include functional assessments as well as daily pain scores. Patient consent obtained and device provided. 2024 025 [email or web address] Not available 5 09:12:49 remote therapeutic monitoring to monitor musculoskel etal system (PROC) 2024 025 [email or web address] Not available 5 09:29:37 sacroiliac joint injection (PROC) - #2 Sacroiliac Right joint - after 07/03/242024 025 [email or web address] Not available 5 19:50:18 remote therapeutic monitoring to monitor musculoskel etal system (PROC) 2023 024 [email or web address] Not available 4 12:30:37 Surgeries None recorded. Imaging None recorded. Medication Orders None recorded. Patient TargetsNo targets recorded. Patient Instructions Encounter Date Encounter Id Patient Instructions Last Modified By Organization Details Last Modified Time 04/04/2024 [id number] sacroiliac pain: exercises Not available 04/04/2024 12:54:49 05/02/2024 [id number] behavioral healt h screen* Not available 05/02/2024 15:46:45 sacroiliac pain: exercises Not available 05/02/2024 12:30:37 06/12/2024 [id number] behavioral healt h screen* Not available 06/13/2024 08:16:33 sacroiliac pain: exercises [email or web address] Not available 06/12/2024 09:29:37 07/16/2024 [id number] sacroiliac pain: exercises Not available 07/16/2024 12:43:20 Reason for Referral None Reported. Results Created Date Observation Date Name Description Value Unit Range Abnormal Flag Note LastModifiedBy Organization Detail LastModifiedTime 03/11/20 24 03/11/2024 XR, lumbo sacra l spine , 4 or more view No observ ation record ed. [email or web address] [facility] [address] [place], [address], 03/11/2024 15:43:07 Result Notes None recorded. Problems Name Problem SNOMED Code Status Onset Date Resolution Date Notes Provider Name and Address Organization Details Recorded Time Low back pain 207194988 Active 2023 Alma carranza [place] [facility] 4 13:07:01 Lumbar radiculopathy 464320541 Active 2023 Alma carranza [place] - [facility] 4 13:37:56 Inflammation of sacroiliac joint 88513496 Active 2023 Alma carranza [place] [facility] 4 13:37:59 Chronic pain 12312189 Active 2023 Yrn Pressley null, [place] - [facility] 4 10:10:11 Lumbar spondylosis 508739159 Active [address]XA [address]ERS [address] [place] [address], [phone] , [place] [facility] 08:58:40 Problem Notes None recorded. Procedures Surgical History Date Name Laterality Status Provider Name and Address Organization Details Recorded Time 5 SI Joint Injection (Fluoro) completed [facility] 07/16/2024 10:31:25 4 SI Joint Injection (Fluoro) completed [facility] 04/04/2024 11:57:53 total knee replacement completed Alma Hoangon [facility] 03/11/2024 13:07:36 Imaging Results None recorded. Procedure Notes None recorded. Medical Equipment None Reported. Allergies Allergen ID Allergen Name Allergen Category Reaction Reaction Severity Criticality Documentation Date Start Date Code Code System Note Provider Name and Address Organization Details Recorded Time 28690718 Product containin g penicilli n (product) medicatio n Not available Not available Not available 03/11/2024 28134 8001 SNOMED Alma Leonard [facility] 4 13:06:07 Medications Name Sig Start Date Stop Date Status Note LastModified by Organization Details LastModified Time aspirin 325mg tab TAKE 1 TABLET BY MOUTH ONCE DAILY WITH BREAKFAST FOR DVT PROPHYLAX IS FOR 3 WEEKS, THEN SWITCH BACK TO BABY ASPIRIN active Not Available Not Available No t Available metformin 500 mg tablet TAKE 1 TABLET BY MOUTH TWICE DAILY WITH MEALS FOR 90 DAYS active Not Available Not Available No t Available atorvastati n 20 mg tablet TAKE 1 TABLET BY MOUTH AT BEDTIME active Not Available Not Available No t Available lisinopril 20 mg-hydrochl orothiazide 12.5 mg tablet TAKE 2 TABLETS BY MOUTH ONCE DAILY active Not Available Not Available No t Available azithromyci n 250 mg tablet TAKE 2 TABLETS BY MOUTH ON DAY 1, AND THEN TAKE 1 TABLET BY MOUTH ONCE A DAY ON DAY 2 THROUGH DAY 5 08/30 completed Not Available Not Available Not Available hydrocodone 5 mg-acetamin ophen 325 mg tablet TAKE 1 TABLET BY MOUTH EVERY 6 HOURS 03/11 completed Not Available Not Available Not Available triamcinolo ne acetonide 0.1 % topical cream APPLY CREAM EXTERNALL Y THREE TIMES DAILY NEEDED FOR RASH OR ITCHING 03/11 completed Not Available Not Available Not Available docusate sodium 100 mg capsule TAKE 1 CAPSULE BY MOUTH TWICE DAILY NEEDED FOR CONSTIPAT ION FOR 10 DAYS 03/11 completed Not Available Not Available Not Available gabapentin 300 mg capsule TAKE 1 CAPSULE BY MOUTH ONCE DAILY active Not Available Not Available No t Available ibuprofen 600 mg tablet TAKE 1 TABLET BY MOUTH EVERY 8 HOURS 03/11 completed Not Available Not Available Not Available zolpidem 10 mg tablet TAKE 1/2 TO 1 (ONE-HALF TO ONE) TABLET BY MOUTH ONCE DAILY AT BEDTIME NEEDED FOR INSOMNIA 03/11 completed Not Available Not Available Not Available albuterol sulfate HFA 90 mcg/actuati on aerosol inhaler INHALE 2 PUFFS BY MOUTH EVERY 4 TO 6 HOURS NEEDED FOR SHORTNESS OF BREATH FOR WHEEZING active Not Available Not Available No t Available colchicine 0.6 mg tablet TAKE 1 TABLET BY MOUTH ONCE DAILY 03/11 completed Not Available Not Available Not Available cefdinir 300 mg capsule TAKE 1 CAPSULE BY MOUTH EVERY 12 HOURS FOR 10 DAYS 03/11 completed Not Available Not Available Not Available oxycodone 5 mg tablet TAKE 1 TABLET BY MOUTH EVERY 4 HOURS NEEDED FOR PAIN 03/11 completed Not Available Not Available Not Available Vitals Date Recorded Body height Body mass index (BMI) Body weight Provider Name and Address Organization Details Last Updated DateTime 06/12/2024 172.72 cm 35.3 kg/m2 117101.43 g Yrn Pressley [facility] 06/12/2024 09:15:11 Date Recorded Pain severity - 0-10 verbal numeric rating [Score] - Reported Provider Name and Address Organization Details Last Updated DateTime 09/02/2024 6 ALEXA WATERS [address] [place] [address], [phone] 09/02/2024 09:04:14 Date Recorded Body height Body mass index (BMI) Body weight Oxygen saturation Heart rate Systolic And Diastolic Provider Name and Address Organization Details Last Updated DateTime 172.72 cm 35.9 kg/m2 719033. 8 g 97 % 90 /min 97/69 mm[Hg] Kathia Multani [facility] 08:37:56 Date Recorded Body height Body mass index (BMI) Body weight Pain severity - 0-10 verbal numeric rating [Score] - Reported Heart rate Oxygen saturation Systolic And Diastolic Provider Name and Address Organization Details Last Updated DateTime 4 172.72 cm 35.3 kg/m2 934292. 43 g 0 94 /min 97 % 79/69 mm[Hg] Yrn Pressley [facility] 4 10:12:25 Social History Question Answer Notes LastModified by [employer] Details LastModified Time Tobacco Smoking Status Never Smoker Alma Leonard dillon [facility] 03/11/2024 13:07:22 Do You Have An Advance Directive? 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 [email or web address] Information not available 03/11/2024 Sex: Unknown Functional Status Question Answer Note LastModified by [employer] Details LastModified Time Do you use any illicit or recreational drugs? No [email or web address] Information not available 03/11/2024 What is your level of alcohol consumption? None Information not available 03/11/2024 Are you currently employed? Yes [email or web address] Information not available 03/11/2024 Are you able to walk independently without assistance or assistive devices? [email or web address] Information not available 03/11/2024 Mental Status None recorded. Family History Nothing Reported. Medical History Condition Response Bipolar Disease N Coronary Artery Disease N Seizure Disorder N Gout N Atrial Fibrillation N Thyroid Disease N Hernia N Head Trauma/Injury N COPD N Depression N Anxiety Disorder N Acid Reflux (GERD) N Cancer N Skin Disorder N Stroke N High Cholesterol Y Liver Disease N Rheumatoid Arthritis N Headaches N Fibromyalgia N Autoimmune Disease N Kidney Disease N Osteoarthritis N Neurosurgery N DVT N Peptic Ulcer Disease N Anemia N Heart Attack ([place]) N Diabetes N Cardiomyopathy N Bleeding Disorder N CHF N AIDS/HIV N Inflammatory Bowel Disease N Dementia N Asthma N Substance Abuse N Sleep Apnea N Hepatitis N Heart Disease N Pulmonary Embolism N Chronic Low Back Pain N Hypertension Y Osteoporosis N Gynecological HistoryNo gynecological history recorded. Obstetrics History GPAL:G 0 P 0 0 0 0 Past Encounters Encounter ID Performer Location Encounter Start Date Encounter Closed Date Diagnosis/Indication Diagnosis SNOMED-CT Code Diagnosis ICD10 Code Diagnosis IMO Codes Diagnosis Note [id number] MAYA ALCALA MD [facility] [address] [place] [address] 03/11/2024 12:48:48 03/11/2024 13:42:03 Chronic pain 29956941 G89.29 Inflammati on of sacroiliac joint 86104140 M46.1 Lumbar radiculopathy 128 615025 M54.16 [id number] MD Chaka LIN [address] [place] [address] 04/04/2024 10:34:55 04/04/2024 11:52:27 Inflammation of sacroiliac joint 91418108 M46.1 [id number] MAYA ALCALA MD [facility] [address] [place] [address] 05/02/2024 10:02:21 05/02/2024 10:38:34 Lumbar radiculopathy 614098925 M54.16 Chronic pain 66320151 G8 9.29 Inflammati on of sacroiliac joint 75520192 M46.1 [id number] MD Kamran [place] [address] [place] [address] 06/12/2024 09:07:45 06/12/2024 14:46:53 Chronic pain 84402748 G89.29 Inflammati on of sacroiliac joint 75824454 M46.1 Lumbar spondylosis 41908 0009 M47.617 [id number] MD Chaka LIN [address] [place] [address] 07/16/2024 09:11:46 07/16/2024 10:25:32 Inflammation of sacroiliac joint 48825630 M46.1 [id number] MD Chaka [place] [address] [place] [address] 09/02/2024 08:19:09 09/02/2024 09:06:38 Chronic pain 13218406 G89.29 Inflammati on of sacroiliac joint 15215573 M46.1 Long-term drug therapy 501861068 Z79.899 No Uds today 09/02/2024 Lumbar spondylosis 70170 0009 M47.816 [id number] Health Concerns Section Related Observation LastModified by Organization Detai ls LastModified Time None Recorded Concern Status LastModified by Organization Details LastModified Time None Recorded Advance Directives Directive N: Payers Insurance Date Sequence Insurance Name Policy Number Policy Barfield Covered Member ID Barfield Member ID Guarantor Name 08/30/2024 1 [place] [id number] Kendal Lee [id number] Kendal Lee Notes Date Note Type Note Provider Name and Address Organization Details Recorded Time 4 text/html Low back painReported by PatientHPIFor onset, patient reportsdate of onset: (2013). For location, patient reportsmidline,paraspinal: right,buttock: right, andpain is not radiating. For duration, patient reportsvaries throughout the day. For context, patient reportsstarted without cause. For quality, patient reportsaching. For pain intensity, patient reportsno pain,current pain level: 0/10, andworst pain level: 6/10. For alleviating factors, patient reportssittingandrest. For aggravating factors, patient reportsstandingandwalking. For associated symptoms, patient reportsno weakness,no numbness,no tingling,no swelling,no popping/clicking,no bowel incontinence,no urinary retention,no urinary incontinence, andno perineal paresthesia/anesthesia. 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 For prior imaging, patient reportsno recent studies. For lumbar surgery, patient reportsnone. For physical therapy, patient reportscurrently in pt: no improvement in pain/symptoms,facility: ([facility]complete more than 6weeks,dates: (07/2023-09/2023), andresponse to therapy: no improvement in pain/symptoms. For prior pain management, patient reportsno. For oswestry disability index (honey), patient reportsscore/date completed: (20%- 03/11/2024). For for female patients, patient reportsare you ? no. For interventional treatment history, (patient denies any past injection therapy). pt is coming in for a follow up. On 04/04/2024 #1 Sacroiliac Right joint - 100% relief. ALEXA WATERS [address] [place] [address], [phone], [facility] 05/02/2024 12:30:48 5 text/html Low back painReported by PatientHPIFor onset, patient reportsdate of onset: (2013). For location, patient reportsmidline,paraspinal: right,buttock: right, andpain is not radiating. For duration, patient reportsvaries throughout the day. For context, patient reportsstarted without cause. For quality, patient reportsaching. For pain intensity, patient reportsno pain,current pain level: 6/10, andworst pain level: 6/10. For alleviating factors, patient reportssittingandrest. For aggravating factors, patient reportsstandingandwalking. For associated symptoms, patient reportsno weakness,no numbness,no tingling,no swelling,no popping/clicking,no bowel incontinence,no urinary retention,no urinary incontinence, andno perineal paresthesia/anesthesia. 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 For prior imaging, patient reportsno recent studies. For lumbar surgery, patient reportsnone. For physical therapy, patient reportscurrently in pt: no improvement in pain/symptoms,facility: [facility]),complete more than 6weeks,dates: (07/2023-09/2023), andresponse to therapy: no improvement in pain/symptoms. For prior pain management, patient reportsno. For oswestry disability index (honey), patient reportsscore/date completed: (20%- 03/11/2024). For for female patients, patient reportsare you ? no. For interventional treatment history, (patient denies any past injection therapy).ROS as noted in the HPI pt is coming in for a follow up. ALEXA WATERS [address] [place] [address], [phone], [facility] 06/12/2024 09:30:06 5 text/html Low back painReported by PatientHPIFor onset, patient reportsdate of onset: (2013). For location, patient reportsmidline,paraspinal: right,buttock: right, andpain is not radiating. For duration, patient reportsvaries throughout the day. For context, patient reportsstarted without cause. For quality, patient reportsaching. For pain intensity, patient reportsno pain,current pain level: 6/10, andworst pain level: 10/10. For alleviating factors, patient reportssittingandrest. For aggravating factors, patient reportsstandingandwalking. For associated symptoms, patient reportsno weakness,no numbness,no tingling,no swelling,no popping/clicking,no bowel incontinence,no urinary retention,no urinary incontinence, andno perineal paresthesia/anesthesia. 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 For prior imaging, patient reportsno recent studies. For lumbar surgery, patient reportsnone. For physical therapy, patient reportscurrently in pt: no improvement in pain/symptoms,facility: ([facility]),complete more than 6weeks,dates: (07/2023-09/2023), andresponse to therapy: no improvement in pain/symptoms. For prior pain management, patient reportsno. For oswestry disability index (honey), patient reportsscore/date completed: (20%- 03/11/2024). For for female patients, patient reportsare you ? no. For interventional treatment history, (patient denies any past injection therapy).ROS as noted in the HPI Patient presents to follow up for injection follow up. The patient has had no recent hospitalization, ER visits, specialist appointments (neurology, orthopedics, surgery), or updated imaging since their last visit. ALEXA WATERS [address] [place] [address], [id number], [facility] 09/02/2024 09:13:19 OBGyn Episode No OBEpisode recorded.
== END 2025-04-28 23:59 | disposition home or self-care (01) ==
LOC: LAB.DROPOF 04-29 16:47
PROVIDERS: PCP Internal Medicine; Visit Provider Internal Medicine
DX: E78.5 Hyperlipidemia, unspecified (principal); E11.9 Type 2 diabetes mellitus without complications; I10 Essential (primary) hypertension
CPT/HCPCS: 80053; 80061; 82043; 82570; 83036